=== PATIENT | male | born 1950 | race Caucasian/White ===

== ENCOUNTER 2017-07-28 22:26 | Inpatient (IN) | payer MEDICARE, OTHER ==
[2017-07-28 23:36] LABS: ADD MAN DIFF? NO
[2017-07-28 23:43] LABS: WHITE BLOOD COUNT 25.8 10^3/ul (4.8-10.8)
[2017-07-28 23:43] LABS: ABNORMAL IP MESSAGE 1; BASOPHIL # 0.1 10^3/ul (0.0-0.1); BASOPHILS % 0.2 % (0.0-2.0); HEMATOCRIT 50.3 % (42.0-52.0); HEMOGLOBIN 16.6 g/dl (14.0-18.0); LYMPHOCYTES # 1.3 10^3/ul (0.8-2.9); LYMPHOCYTES % 4.8 % (15.0-51.0); MEAN CORPUSCULAR HEMOGLOBIN 28.9 pg (29.0-33.0); MEAN CORPUSCULAR VOLUME 87.6 fl (82.0-101.0); MEAN PLATELET VOLUME 14.1 fl (7.4-10.4); MONOCYTE # 0.6 10^3/ul (0.3-0.9); MONOCYTES % 2.3 % (0.0-11.0); NEUTROPHIL # 23.8 10^3/ul (1.6-7.5); NEUTROPHILS % 92.2 % (39.0-77.0); PLATELET COUNT 137 10^3/UL (140-415); POSITIVE DIFF @See below; RED BLOOD COUNT 5.74 10^6/ul (4.70-6.10); RED CELL DISTRIBUTION WIDTH 14.6 % (11.5-14.5)
[2017-07-28 23:58] LABS: INR 1.13; PARTIAL THROMBOPLASTIN TIME 31.9 Sec (25.0-35.0); PROTIME 14.7 Sec (11.9-14.9); PT RATIO 1.1
[2017-07-29 00:01] LABS: ALANINE AMINOTRANSFERASE 73 IU/L (13-69); ALBUMIN 3.8 g/dl (3.3-4.9); ALBUMIN/GLOBULIN RATIO 1.05; ALKALINE PHOSPHATASE 120 IU/L (42-121); ANION GAP 18 (8-16); ASPARTATE AMINO TRANSFERASE 32 IU/L (15-46); BILIRUBIN,INDIRECT 0.9 mg/dl (0-1.1); BILIRUBIN,TOTAL 0.9 mg/dl (0.2-1.3); BLOOD UREA NITROGEN 29 mg/dl (7-20); CALCIUM 8.5 mg/dl (8.4-10.2); CARBON DIOXIDE 23 mmol/L (21-31); CHLORIDE 105 mmol/L (97-110); CREATININE 1.01 mg/dl (0.61-1.24); GLUCOSE 251 mg/dl (70-220); POTASSIUM 4.5 mmol/L (3.5-5.1); SODIUM 141 mmol/L (135-144); TOTAL PROTEIN 7.4 g/dl (6.1-8.1)
[2017-07-29 00:09] LABS: LACTIC ACID 2.8 mmol/L (0.5-2.0)
[2017-07-29 00:13] LABS: TROPONIN-I < 0.012 ng/ml (0.00-0.12)
[2017-07-29] MEDS: ONDANSETRON 4 MG INJ IV (00:30)
[2017-07-29] MEDS: morphine 4 MG/ML VIAL IV (00:30)
[2017-07-29] MEDS: SOD CHLORIDE 0.9% 500 ML IV ×2 (00:30→06:22)
[2017-07-29] MEDS: SODIUM CHLORIDE 0.9% 1L BAG IV* (00:36)
[2017-07-29 00:38] LABS: LIPASE 4233 U/L (23-300)
[2017-07-29] MEDS: CEFEPIME 2GM/50 ML (PMX) 50 ML IVPB (01:00)
[2017-07-29] MEDS: VANCOMYCIN 1 GM (PMX) 250 ML IVPB (01:49)
[2017-07-29 08:15] LABS: LACTIC ACID 1.8 mmol/L (0.5-2.0)
[2017-07-29 14:02] LABS: ADD UMIC YES; UR ASCORBIC ACID 40 mg/dL (NEGATIVE); UR BACTERIA FEW /HPF (NONE SEEN); UR BILIRUBIN (Dip) NEGATIVE (NEGATIVE); UR BLOOD (Dip) NEGATIVE (NEGATIVE); UR BUDDING YEAST FEW /HPF (NONE SEEN); UR CLARITY CLOUDY (CLEAR); UR COLOR AMBER (YELLOW); UR GLUCOSE (Dip) 1+ mg/dL (NEGATIVE); UR KETONES (Dip) TRACE mg/dL (NEGATIVE); UR LEUKOCYTE ESTERASE (Dip) 3+ Leu/ul (NEGATIVE); UR NITRITE (Dip) NEGATIVE (NEGATIVE); UR RBC 19 /HPF (0-5); UR SPECIFIC GRAVITY (Dip) 1.026 (1.003-1.030); UR TOTAL PROTEIN (Dip) 2+ mg/dl (NEGATIVE); UR UROBILINOGEN (Dip) NEGATIVE (NEGATIVE); UR WBC 43 /HPF (0-5)
[2017-07-29] MEDS ORDERED: VANCOMYCIN IV PER PHARMACY XX (14:30)
[2017-07-29] MEDS ORDERED: GLUCOSE GEL 15 GRAM TUBE BUCCAL (14:30)
[2017-07-29] MEDS ORDERED: GLUCOSE GEL 15 GRAM TUBE PO ×2 (14:30)
[2017-07-29] MEDS ORDERED: GLUCAGON 1 MG INJ IM (14:30)
[2017-07-29] MEDS ORDERED: ONDANSETRON 4 MG INJ IV (15:00)
[2017-07-29] MEDS: CEFEPIME 1GM/50 ML (PMX) 50 ML IVPB (15:37)
[2017-07-29] MEDS: SOD CHLORIDE 0.9% 1,000 ML IV ×2 (15:37→23:43)
[2017-07-29] MEDS: PANTOPRAZOLE 40 MG INJ IV (15:37)
[2017-07-29] MEDS: LEVETIRACETAM 500 MG (PMX) 100 ML IVPB ×2 (16:11→22:39)
[2017-07-29] MEDS: VANCOMYCIN 750 MG in DEXTROSE 5% 150 ML IVPB (16:40)
[2017-07-29] MEDS ORDERED: INSULIN ASPART [NOVOLOG] 3 ML PEN SC ×2 (17:00→18:00)
[2017-07-29] MEDS: Insulin NOVOLOG SS MILD Algorithm (NPO/TPN/ENTERAL FEEDS) SC ×2 (17:37→21:00)
[2017-07-29] MEDS: HYDROCORTISONE 2.5% 20 GM CR TOP (23:00)
[2017-07-29 23:20] LABS: AADO2 Arterial 353.2 mmHg (7.0-24.0); Allen Test ACCEPTAB; Arterial Base Excess -2.1 mmol/L (-3.0-3); Arterial Blood Gas Oxygen Sat 99.5 mmHG (95.0-98.0); Arterial COHb 0.1 % (0.0-3.0); Arterial Fraction of Oxyhgb 98.8 % (93.0-99.0); Arterial HCO3 22.6 mmol/L (22.0-26.0); Arterial MetHb 0.6 % (0.0-1.5); Arterial Total Hemglobin 13.7 g/dl (12.0-18.0); Arterial pCO2 38.6 mmhg (35-45); MODE TRACH COLLAR; Site Right Radial
[2017-07-29] MEDS: PIPER-TAZO 3.375 GM IV (PMX) 100 ML IVPB (23:44)
[2017-07-30] MEDS: ALBUTEROL/IPRATROPIUM (NEB) 3 ML AMP HHN ×5 (00:07→19:27)
[2017-07-30] MEDS: Insulin NOVOLOG SS MILD Algorithm (NPO/TPN/ENTERAL FEEDS) SC ×6 (01:07→20:42)
[2017-07-30] MEDS ORDERED: ACCU-CHEK XX (02:00)
[2017-07-30] MEDS: VANCOMYCIN 750 MG in DEXTROSE 5% 150 ML IVPB ×2 (05:28→16:35)
[2017-07-30] MEDS: PIPER-TAZO 3.375 GM IV (PMX) 100 ML IVPB ×3 (06:25→21:41)
[2017-07-30 06:27] LABS: ADD MAN DIFF? NO
[2017-07-30 06:36] LABS: ABNORMAL IP MESSAGE 1; BASOPHILS % 0.3 % (0.0-2.0); EOSINOPHILS # 0.1 10^3/ul (0.0-0.5); EOSINOPHILS % 0.5 % (0.0-7.0); HEMATOCRIT 37.8 % (42.0-52.0); HEMOGLOBIN 12.3 g/dl (14.0-18.0); LYMPHOCYTES # 0.7 10^3/ul (0.8-2.9); LYMPHOCYTES % 5.6 % (15.0-51.0); MEAN CORPUSCULAR HEMOGLOBIN 29.1 pg (29.0-33.0); MEAN CORPUSCULAR HGB CONC 32.5 g/dl (32.0-37.0); MEAN CORPUSCULAR VOLUME 89.4 fl (82.0-101.0); MONOCYTE # 0.4 10^3/ul (0.3-0.9); MONOCYTES % 3.4 % (0.0-11.0); NEUTROPHILS % 89.9 % (39.0-77.0); PLATELET COUNT 112 10^3/UL (140-415); POSITIVE DIFF @See below; RED BLOOD COUNT 4.23 10^6/ul (4.70-6.10); RED CELL DISTRIBUTION WIDTH 14.8 % (11.5-14.5)
[2017-07-30 06:36] LABS: WHITE BLOOD COUNT 12.2 10^3/ul (4.8-10.8)
[2017-07-30] MEDS: SOD CHLORIDE 0.9% 1,000 ML IV ×3 (06:38→14:38)
[2017-07-30 06:46] LABS: HEMOGLOBIN A1C 5.8 % (0-5.9)
[2017-07-30 06:54] LABS: CHOL/HDL RATIO 5.3 RATIO; HDL CHOLESTEROL 13 mg/dl (30-78); LDL CHOLESTEROL,CALCULATED 35 mg/dl; TRIGLYCERIDES 103 mg/dl (0-149)
[2017-07-30 06:54] LABS: CHOLESTEROL 69 mg/dl (100-200)
[2017-07-30 06:59] LABS: LIPASE 548 U/L (23-300)
[2017-07-30 07:35] LABS: ANION GAP 14 (8-16); BLOOD UREA NITROGEN 27 mg/dl (7-20); CALCIUM 7.3 mg/dl (8.4-10.2); CARBON DIOXIDE 21 mmol/L (21-31); CHLORIDE 116 mmol/L (97-110); CREATININE 0.96 mg/dl (0.61-1.24); GLUCOSE 163 mg/dl (70-220); POTASSIUM 3.8 mmol/L (3.5-5.1); SODIUM 147 mmol/L (135-144)
[2017-07-30] MEDS: PANTOPRAZOLE 40 MG INJ IV (09:24)
[2017-07-30] MEDS: LEVETIRACETAM 500 MG (PMX) 100 ML IVPB ×2 (09:25→20:36)
[2017-07-30 16:03] LABS: VANCOMYCIN,TROUGH 12.6 ug/ml (10.0-20.0)
[2017-07-30] MEDS: D5W-0.45 NACL + KCL 20 MEQ 1,000 ML IV (17:25)
[2017-07-30] MEDS: HYDROCORTISONE 2.5% 28.35 GM CR TOP (20:37)
[2017-07-31] MEDS: ALBUTEROL/IPRATROPIUM (NEB) 3 ML AMP HHN ×4 (01:42→19:20)
[2017-07-31] MEDS: Insulin NOVOLOG SS MILD Algorithm (NPO/TPN/ENTERAL FEEDS) SC ×6 (01:43→20:16)
[2017-07-31] MEDS: VANCOMYCIN 750 MG in DEXTROSE 5% 150 ML IVPB ×2 (04:14→16:49)
[2017-07-31] MEDS: D5W-0.45 NACL + KCL 20 MEQ 1,000 ML IV ×3 (04:14→23:30)
[2017-07-31] MEDS: PIPER-TAZO 3.375 GM IV (PMX) 100 ML IVPB ×3 (05:24→21:47)
[2017-07-31 06:08] LABS: ADD MAN DIFF? NO
[2017-07-31 06:42] LABS: ANION GAP 15 (8-16); BLOOD UREA NITROGEN 22 mg/dl (7-20); CALCIUM 7.9 mg/dl (8.4-10.2); CARBON DIOXIDE 23 mmol/L (21-31); CHLORIDE 116 mmol/L (97-110); CREATININE 0.97 mg/dl (0.61-1.24); GLUCOSE 182 mg/dl (70-220); POTASSIUM 3.6 mmol/L (3.5-5.1); SODIUM 150 mmol/L (135-144)
[2017-07-31 08:25] LABS: BASOPHILS % 0.3 % (0.0-2.0); EOSINOPHILS # 0.1 10^3/ul (0.0-0.5); EOSINOPHILS % 1.2 % (0.0-7.0); HEMATOCRIT 41.2 % (42.0-52.0); HEMOGLOBIN 13.4 g/dl (14.0-18.0); LYMPHOCYTES % 10.7 % (15.0-51.0); MEAN CORPUSCULAR HEMOGLOBIN 29.5 pg (29.0-33.0); MEAN CORPUSCULAR HGB CONC 32.5 g/dl (32.0-37.0); MEAN CORPUSCULAR VOLUME 90.5 fl (82.0-101.0); MEAN PLATELET VOLUME 12.8 fl (7.4-10.4); MONOCYTE # 0.4 10^3/ul (0.3-0.9); MONOCYTES % 4.6 % (0.0-11.0); NEUTROPHIL # 7.9 10^3/ul (1.6-7.5); NEUTROPHILS % 82.9 % (39.0-77.0); PLATELET COUNT 106 10^3/UL (140-415); RED BLOOD COUNT 4.55 10^6/ul (4.70-6.10); RED CELL DISTRIBUTION WIDTH 14.6 % (11.5-14.5)
[2017-07-31 08:25] LABS: WHITE BLOOD COUNT 9.5 10^3/ul (4.8-10.8)
[2017-07-31] MEDS: LEVETIRACETAM 500 MG (PMX) 100 ML IVPB ×2 (09:34→20:01)
[2017-07-31] MEDS: HYDROCORTISONE 2.5% 28.35 GM CR TOP ×2 (09:36→20:01)
[2017-07-31] MEDS: BALSAM PERU/CASTOR OIL 60 GM TUBE TOP ×2 (10:14→20:02)
[2017-07-31 10:46] LABS: PROTEIN, TOTAL 4.7 g/dL (6.1-8.1)
[2017-07-31 15:36] LABS: ALBUMIN 2.2 g/dL (3.8-4.8); ALPHA-1-GLOBULINS 0.5 g/dL (0.2-0.3); ALPHA-2-GLOBULINS 0.6 g/dL (0.5-0.9); BETA 2 GLOBULINS 0.3 g/dL (0.2-0.5); BETA GLOBULINS 0.3 g/dL (0.4-0.6); GAMMA GLOBULINS 0.8 g/dL (0.8-1.7); PROLACTIN 5.9 ng/mL (2.0-18.0)
[2017-08-01] MEDS: ALBUTEROL/IPRATROPIUM (NEB) 3 ML AMP HHN ×4 (01:01→19:54)
[2017-08-01] MEDS: Insulin NOVOLOG SS MILD Algorithm (NPO/TPN/ENTERAL FEEDS) SC ×6 (01:40→22:31)
[2017-08-01] MEDS: PIPER-TAZO 3.375 GM IV (PMX) 100 ML IVPB ×3 (05:01→22:42)
[2017-08-01] MEDS: HYDROCORTISONE 2.5% 28.35 GM CR TOP ×2 (09:14→21:00)
[2017-08-01] MEDS: LEVETIRACETAM 500 MG (PMX) 100 ML IVPB ×2 (09:14→22:54)
[2017-08-01] MEDS: BALSAM PERU/CASTOR OIL 60 GM TUBE TOP ×2 (09:15→22:55)
[2017-08-01] MEDS: D5W-0.45 NACL + KCL 20 MEQ 1,000 ML IV ×2 (10:20→18:46)
[2017-08-01] MEDS ORDERED: MAGNESIUM SULFATE 4 GM/100 ML 100 ML IVPB (11:30)
[2017-08-01 20:37] LABS: POTASSIUM 3.8 mmol/L (3.5-5.1)
[2017-08-02] MEDS: ALBUTEROL/IPRATROPIUM (NEB) 3 ML AMP HHN ×4 (01:16→20:18)
[2017-08-02] MEDS: Insulin NOVOLOG SS MILD Algorithm (NPO/TPN/ENTERAL FEEDS) SC ×6 (01:51→21:55)
[2017-08-02] MEDS: PIPER-TAZO 3.375 GM IV (PMX) 100 ML IVPB ×2 (05:13→14:50)
[2017-08-02] MEDS: D5W-0.45 NACL + KCL 20 MEQ 1,000 ML IV ×2 (05:15→15:15)
[2017-08-02 06:11] LABS: ADD MAN DIFF? NO
[2017-08-02 06:18] LABS: BASOPHILS % 0.3 % (0.0-2.0); EOSINOPHILS # 0.1 10^3/ul (0.0-0.5); EOSINOPHILS % 0.6 % (0.0-7.0); HEMATOCRIT 36.6 % (42.0-52.0); HEMOGLOBIN 12.1 g/dl (14.0-18.0); LYMPHOCYTES # 0.7 10^3/ul (0.8-2.9); LYMPHOCYTES % 4.4 % (15.0-51.0); MEAN CORPUSCULAR HEMOGLOBIN 29.3 pg (29.0-33.0); MEAN CORPUSCULAR HGB CONC 33.1 g/dl (32.0-37.0); MEAN CORPUSCULAR VOLUME 88.6 fl (82.0-101.0); MEAN PLATELET VOLUME 12.6 fl (7.4-10.4); MONOCYTE # 0.5 10^3/ul (0.3-0.9); MONOCYTES % 3.4 % (0.0-11.0); NEUTROPHIL # 14.1 10^3/ul (1.6-7.5); NEUTROPHILS % 90.8 % (39.0-77.0); PLATELET COUNT 171 10^3/UL (140-415); RED BLOOD COUNT 4.13 10^6/ul (4.70-6.10); RED CELL DISTRIBUTION WIDTH 14.6 % (11.5-14.5)
[2017-08-02 06:18] LABS: WHITE BLOOD COUNT 15.6 10^3/ul (4.8-10.8)
[2017-08-02 07:02] LABS: ANION GAP 13 (8-16); BLOOD UREA NITROGEN 12 mg/dl (7-20); CARBON DIOXIDE 21 mmol/L (21-31); CHLORIDE 118 mmol/L (97-110); CREATININE 0.87 mg/dl (0.61-1.24); GLUCOSE 232 mg/dl (70-220); POTASSIUM 3.6 mmol/L (3.5-5.1); SODIUM 148 mmol/L (135-144)
[2017-08-02] MEDS: BALSAM PERU/CASTOR OIL 60 GM TUBE TOP ×2 (08:20→21:50)
[2017-08-02] MEDS: HYDROCORTISONE 2.5% 28.35 GM CR TOP (08:20)
[2017-08-02] MEDS: LEVETIRACETAM 500 MG (PMX) 100 ML IVPB ×2 (09:15→21:47)
[2017-08-02] MEDS: POTASSIUM CHLORIDE 20 MEQ POWDER FOR ORAL SOLN JT (15:02)
[2017-08-02] MEDS ORDERED: PROPOFOL 20 ML (17:57)
[2017-08-02] MEDS ORDERED: ROCURONIUM 50 MG INJ (17:57)
[2017-08-02] MEDS ORDERED: FENTAnyl 50 MCG/ML VIAL (17:57)
[2017-08-02] MEDS ORDERED: MIDAZOLAM 1 MG/ML 2 ML INJ (17:57)
[2017-08-02] MEDS ORDERED: FENTAnyl 50 MCG/ML VIAL IV ×2 (18:00)
[2017-08-02] MEDS ORDERED: METOCLOPRAMIDE 10 MG INJ IV (18:00)
[2017-08-02] MEDS ORDERED: DIPHENHYDRAMINE 50 MG INJ IV (18:00)
[2017-08-02] MEDS ORDERED: EPHEDrine SULFATE 50 MG/5 ML SYG IV (18:00)
[2017-08-02] MEDS ORDERED: hydrALAzine 20 MG INJ IV (18:00)
[2017-08-02] MEDS ORDERED: HYDROmorphONE (0.2 MG/ML) 10ML SYG IV ×2 (18:00)
[2017-08-02] MEDS ORDERED: MEPERIDINE 25 MG INJ IV (18:00)
[2017-08-02] MEDS ORDERED: ONDANSETRON 4 MG INJ IV (18:00)
[2017-08-02] MEDS ORDERED: LABETALOL HCL 20MG INJ IV (18:00)
[2017-08-02] MEDS ORDERED: PHENYLephrine (100 MCG/ML) 5ML SYG (18:15)
[2017-08-02] MEDS ORDERED: SUGAMMADEX SODIUM 200 MG/2 ML VIAL IV (19:18)
[2017-08-02] MEDS ORDERED: METOCLOPRAMIDE 10 MG INJ (19:18)
[2017-08-02] MEDS ORDERED: DEXAMETHASONE 4 MG/ML 1 ML INJ (19:18)
[2017-08-02] MEDS ORDERED: ONDANSETRON 4 MG INJ (19:18)
[2017-08-02] MEDS: COLISTIMETHATE 150 MG in SOD CHLORIDE 0.9% 100 ML IVPB (21:49)
[2017-08-02] MEDS: metroNIDAZOLE 500 MG/NS (PMX) 100 ML IVPB (21:49)
[2017-08-02] MEDS: INSULIN DETEMIR [LEVEMIR] 3ML CART SC (21:54)
[2017-08-03] MEDS: D5W-0.45 NACL + KCL 20 MEQ 1,000 ML IV ×4 (01:30→20:31)
[2017-08-03] MEDS: ALBUTEROL/IPRATROPIUM (NEB) 3 ML AMP HHN ×4 (01:52→20:04)
[2017-08-03] MEDS: Insulin NOVOLOG SS MILD Algorithm (NPO/TPN/ENTERAL FEEDS) SC ×6 (02:00→20:29)
[2017-08-03] MEDS: metroNIDAZOLE 500 MG/NS (PMX) 100 ML IVPB ×3 (05:22→21:39)
[2017-08-03 07:28] LABS: ADD MAN DIFF? NO
[2017-08-03 07:50] LABS: MAGNESIUM 1.7 mg/dl (1.7-2.5)
[2017-08-03 07:53] LABS: ALANINE AMINOTRANSFERASE 32 IU/L (13-69); ALBUMIN 1.9 g/dl (3.3-4.9); ALBUMIN/GLOBULIN RATIO 0.86; ALKALINE PHOSPHATASE 69 IU/L (42-121); ANION GAP 11 (8-16); ASPARTATE AMINO TRANSFERASE 15 IU/L (15-46); BILIRUBIN,INDIRECT 0.1 mg/dl (0-1.1); BILIRUBIN,TOTAL 0.1 mg/dl (0.2-1.3); BLOOD UREA NITROGEN 17 mg/dl (7-20); CALCIUM 7.8 mg/dl (8.4-10.2); CARBON DIOXIDE 22 mmol/L (21-31); CHLORIDE 118 mmol/L (97-110); CREATININE 0.85 mg/dl (0.61-1.24); GLUCOSE 213 mg/dl (70-220); POTASSIUM 3.9 mmol/L (3.5-5.1); SODIUM 147 mmol/L (135-144); TOTAL PROTEIN 4.1 g/dl (6.1-8.1)
[2017-08-03] MEDS: LEVETIRACETAM 500 MG (PMX) 100 ML IVPB ×2 (08:28→20:23)
[2017-08-03] MEDS: HYDROCORTISONE 2.5% 28.35 GM CR TOP ×2 (08:28→21:39)
[2017-08-03] MEDS: INSULIN DETEMIR [LEVEMIR] 3ML CART SC ×2 (08:30→20:30)
[2017-08-03] MEDS: BALSAM PERU/CASTOR OIL 60 GM TUBE TOP ×2 (08:31→20:24)
[2017-08-03 08:43] LABS: ABNORMAL IP MESSAGE 1; BASOPHILS % 0.2 % (0.0-2.0); HEMOGLOBIN 10.7 g/dl (14.0-18.0); LYMPHOCYTES # 0.5 10^3/ul (0.8-2.9); MEAN CORPUSCULAR HEMOGLOBIN 29.6 pg (29.0-33.0); MEAN CORPUSCULAR HGB CONC 32.4 g/dl (32.0-37.0); MEAN CORPUSCULAR VOLUME 91.2 fl (82.0-101.0); MEAN PLATELET VOLUME 12.4 fl (7.4-10.4); MONOCYTE # 0.4 10^3/ul (0.3-0.9); MONOCYTES % 2.8 % (0.0-11.0); NEUTROPHIL # 12.2 10^3/ul (1.6-7.5); NEUTROPHILS % 92.3 % (39.0-77.0); PLATELET COUNT 163 10^3/UL (140-415); POSITIVE DIFF @See below; RED BLOOD COUNT 3.62 10^6/ul (4.70-6.10); RED CELL DISTRIBUTION WIDTH 14.7 % (11.5-14.5)
[2017-08-03 08:43] LABS: WHITE BLOOD COUNT 13.2 10^3/ul (4.8-10.8)
[2017-08-03] MEDS: COLISTIMETHATE 150 MG in SOD CHLORIDE 0.9% 100 ML IVPB ×2 (10:06→20:20)
[2017-08-03] MEDS: MAGNESIUM SULFATE 3 GM in DEXTROSE 5% 100 ML IVPB (18:06)
[2017-08-04] MEDS ORDERED: VANCOMYCIN IV PER PHARMACY XX
[2017-08-04] MEDS: ACETAMINOPHEN 650 MG SUPP PR (00:42)
[2017-08-04] MEDS: VANCOMYCIN 1 GM 250 ML IVPB (00:43)
[2017-08-04] MEDS: SOD CHLORIDE 0.9% 1,000 ML IV (00:43)
[2017-08-04] MEDS: METOPROLOL 5 MG INJ IV (00:55)
[2017-08-04] MEDS: Insulin NOVOLOG SS MILD Algorithm (NPO/TPN/ENTERAL FEEDS) SC ×6 (01:00→20:22)
[2017-08-04] MEDS: ALBUTEROL/IPRATROPIUM (NEB) 3 ML AMP HHN ×4 (01:30→19:42)
[2017-08-04 01:39] LABS: LACTIC ACID 2.8 mmol/L (0.5-2.0)
[2017-08-04] MEDS: D5W-0.45 NACL + KCL 20 MEQ 1,000 ML IV ×3 (06:04→17:53)
[2017-08-04] MEDS: metroNIDAZOLE 500 MG/NS (PMX) 100 ML IVPB ×3 (06:12→21:56)
[2017-08-04] MEDS: DEXTROSE 50% 50 ML SYRINGE IV (06:12)
[2017-08-04] MEDS: INSULIN DETEMIR [LEVEMIR] 3ML CART SC ×2 (08:00→20:00)
[2017-08-04 08:13] LABS: WHITE BLOOD COUNT 26.1 10^3/ul (4.8-10.8)
[2017-08-04 08:13] LABS: ABNORMAL IP MESSAGE 1; HEMATOCRIT 35.2 % (42.0-52.0); HEMOGLOBIN 11.5 g/dl (14.0-18.0); MEAN CORPUSCULAR HEMOGLOBIN 29.3 pg (29.0-33.0); MEAN CORPUSCULAR HGB CONC 32.7 g/dl (32.0-37.0); MEAN CORPUSCULAR VOLUME 89.8 fl (82.0-101.0); MEAN PLATELET VOLUME 11.7 fl (7.4-10.4); PLATELET COUNT 230 10^3/UL (140-415); POSITIVE DIFF @See below; RED BLOOD COUNT 3.92 10^6/ul (4.70-6.10)
[2017-08-04 08:28] LABS: ADD MAN DIFF? YES
[2017-08-04] MEDS: LEVETIRACETAM 500 MG (PMX) 100 ML IVPB ×2 (08:40→20:22)
[2017-08-04 08:44] LABS: LACTIC ACID 1.7 mmol/L (0.5-2.0)
[2017-08-04 08:45] LABS: ANION GAP 9 (8-16); BLOOD UREA NITROGEN 17 mg/dl (7-20); CALCIUM 7.8 mg/dl (8.4-10.2); CARBON DIOXIDE 20 mmol/L (21-31); CHLORIDE 122 mmol/L (97-110); GLUCOSE 92 mg/dl (70-220); POTASSIUM 3.3 mmol/L (3.5-5.1); SODIUM 148 mmol/L (135-144)
[2017-08-04] MEDS: BALSAM PERU/CASTOR OIL 60 GM TUBE TOP ×2 (08:45→20:27)
[2017-08-04] MEDS: HYDROCORTISONE 2.5% 28.35 GM CR TOP ×2 (08:45→20:27)
[2017-08-04] MEDS: COLISTIMETHATE 150 MG in SOD CHLORIDE 0.9% 100 ML IVPB ×2 (08:46→22:36)
[2017-08-04 09:20] LABS: ANISOCYTOSIS 1+ (0-0); BAND NEUTROPHILS % (M) 23 % (0-4); GIANT THROMBO% (M) 1 % (0-0); LYMPHOCYTES #M 0.2 10^3/ul (0.8-2.9); LYMPHOCYTES % (M) 1 % (15-51); MONOCYTE #M 0.2 10^3/ul (0.3-0.9); MONOCYTES % (M) 1 % (0-11); PLATELET ESTIMATE NORMAL; POLYCHROMASIA 1+ (0-0); SEG NEUT #M 21.1 10^3/ul (1.6-7.5); SEGMENTED NEUTROPHILS (M) % 75 % (39-77)
[2017-08-04] MEDS: CEFEPIME 1GM/50 ML (PMX) 50 ML IVPB ×2 (10:10→20:27)
[2017-08-04] MEDS: POTASSIUM CHLORIDE 20 MEQ POWDER FOR ORAL SOLN GTB (11:30)
[2017-08-04] MEDS: VANCOMYCIN 750 MG in DEXTROSE 5% 150 ML IVPB (11:48)
[2017-08-04] MEDS: MAGNESIUM SULFATE 2 GM/50 ML 50 ML IVPB (13:31)
[2017-08-04] MEDS: POTASSIUM CHLORIDE 100 ML IVPB ×2 (16:30→17:53)
[2017-08-04] MEDS ORDERED: ACETAMINOPHEN 650 MG SUPP PR (23:51)
[2017-08-05] MEDS: VANCOMYCIN 750 MG in DEXTROSE 5% 150 ML IVPB (00:24)
[2017-08-05] MEDS: Insulin NOVOLOG SS MILD Algorithm (NPO/TPN/ENTERAL FEEDS) SC ×6 (00:36→21:00)
[2017-08-05] MEDS: ALBUTEROL/IPRATROPIUM (NEB) 3 ML AMP HHN ×4 (01:46→19:45)
[2017-08-05] MEDS: D5W-0.45 NACL + KCL 20 MEQ 1,000 ML IV ×4 (03:30→22:01)
[2017-08-05] MEDS: metroNIDAZOLE 500 MG/NS (PMX) 100 ML IVPB ×3 (05:37→22:02)
[2017-08-05] MEDS: CEFEPIME 1GM/50 ML (PMX) 50 ML IVPB ×2 (08:19→22:02)
[2017-08-05] MEDS: LEVETIRACETAM 500 MG (PMX) 100 ML IVPB ×2 (08:19→22:02)
[2017-08-05] MEDS: INSULIN DETEMIR [LEVEMIR] 3ML CART SC ×2 (08:19→22:14)
[2017-08-05] MEDS: BALSAM PERU/CASTOR OIL 60 GM TUBE TOP ×2 (08:20→22:02)
[2017-08-05] MEDS: HYDROCORTISONE 2.5% 28.35 GM CR TOP ×2 (08:20→22:01)
[2017-08-05 09:08] LABS: ABNORMAL IP MESSAGE 1; HEMATOCRIT 32.7 % (42.0-52.0); HEMOGLOBIN 10.5 g/dl (14.0-18.0); MEAN CORPUSCULAR HEMOGLOBIN 29.4 pg (29.0-33.0); MEAN CORPUSCULAR HGB CONC 32.1 g/dl (32.0-37.0); MEAN CORPUSCULAR VOLUME 91.6 fl (82.0-101.0); MEAN PLATELET VOLUME 11.6 fl (7.4-10.4); PLATELET COUNT 178 10^3/UL (140-415); POSITIVE DIFF @See below; RED BLOOD COUNT 3.57 10^6/ul (4.70-6.10); RED CELL DISTRIBUTION WIDTH 14.9 % (11.5-14.5)
[2017-08-05 09:16] LABS: ADD MAN DIFF? YES
[2017-08-05 09:30] LABS: ALANINE AMINOTRANSFERASE 26 IU/L (13-69); ALBUMIN 1.9 g/dl (3.3-4.9); ALBUMIN/GLOBULIN RATIO 0.67; ALKALINE PHOSPHATASE 70 IU/L (42-121); AMYLASE 75 U/L (11-123); ANION GAP 11 (8-16); ASPARTATE AMINO TRANSFERASE 19 IU/L (15-46); BILIRUBIN,INDIRECT 0.2 mg/dl (0-1.1); BILIRUBIN,TOTAL 0.2 mg/dl (0.2-1.3); BLOOD UREA NITROGEN 18 mg/dl (7-20); CALCIUM 8.1 mg/dl (8.4-10.2); CARBON DIOXIDE 21 mmol/L (21-31); CHLORIDE 121 mmol/L (97-110); CREATININE 1.28 mg/dl (0.61-1.24); GLUCOSE 115 mg/dl (70-220); LIPASE 96 U/L (23-300); POTASSIUM 4.1 mmol/L (3.5-5.1); SODIUM 149 mmol/L (135-144); TOTAL PROTEIN 4.7 g/dl (6.1-8.1)
[2017-08-05 10:03] LABS: ANISOCYTOSIS 1+ (0-0); BAND NEUTROPHILS #M 5.7 10^3/ul (0.0-0.6); BAND NEUTROPHILS % (M) 34 % (0-4); LYMPHOCYTES #M 0.3 10^3/ul (0.8-2.9); LYMPHOCYTES % (M) 2 % (15-51); METAMYELOCYTES #M 0.1 10^3/ul (0.0-0.0); METAMYELOCYTES %M 1 % (0-0); MICROCYTOSIS 1+ (0-0); MONOCYTE #M 0.1 10^3/ul (0.3-0.9); MONOCYTES % (M) 1 % (0-11); PLATELET ESTIMATE NORMAL; POIKILOCYTOSIS 2+ (0-0); SEG NEUT #M 11.5 10^3/ul (1.6-7.5); SEGMENTED NEUTROPHILS (M) % 62 % (39-77); SMUDGE%M 5 % (0-0)
[2017-08-05] MEDS: COLISTIMETHATE 150 MG in SOD CHLORIDE 0.9% 100 ML IVPB (10:37)
[2017-08-05 12:27] LABS: VANCOMYCIN,TROUGH 17.6 ug/ml (10.0-20.0)
[2017-08-05] MEDS: DEXTROSE 50% 50 ML SYRINGE IV ×2 (22:20→23:09)
[2017-08-05] MEDS: VANCOMYCIN 1.25 GM in SOD CHLORIDE 0.9% 250 ML IVPB (23:40)
[2017-08-06] MEDS: Insulin NOVOLOG SS MILD Algorithm (NPO/TPN/ENTERAL FEEDS) SC ×6 (00:14→21:00)
[2017-08-06] MEDS: ACETAMINOPHEN 650 MG SUPP PR ×2 (00:14→16:01)
[2017-08-06] MEDS: ALBUTEROL/IPRATROPIUM (NEB) 3 ML AMP HHN ×4 (01:31→20:01)
[2017-08-06] MEDS: metroNIDAZOLE 500 MG/NS (PMX) 100 ML IVPB ×3 (05:18→22:21)
[2017-08-06 06:10] LABS: ABNORMAL IP MESSAGE 1; HEMATOCRIT 30.6 % (42.0-52.0); HEMOGLOBIN 9.9 g/dl (14.0-18.0); MEAN CORPUSCULAR HEMOGLOBIN 29.6 pg (29.0-33.0); MEAN CORPUSCULAR HGB CONC 32.4 g/dl (32.0-37.0); MEAN CORPUSCULAR VOLUME 91.3 fl (82.0-101.0); MEAN PLATELET VOLUME 12.1 fl (7.4-10.4); PLATELET COUNT 143 10^3/UL (140-415); POSITIVE DIFF @See below; RED BLOOD COUNT 3.35 10^6/ul (4.70-6.10); RED CELL DISTRIBUTION WIDTH 14.9 % (11.5-14.5)
[2017-08-06 06:10] LABS: WHITE BLOOD COUNT 13.4 10^3/ul (4.8-10.8)
[2017-08-06 06:15] LABS: ADD MAN DIFF? YES
[2017-08-06 06:33] LABS: MAGNESIUM 1.8 mg/dl (1.7-2.5)
[2017-08-06 06:35] LABS: ANION GAP 12 (8-16); BLOOD UREA NITROGEN 24 mg/dl (7-20); CALCIUM 8.2 mg/dl (8.4-10.2); CARBON DIOXIDE 20 mmol/L (21-31); CHLORIDE 119 mmol/L (97-110); CREATININE 1.45 mg/dl (0.61-1.24); GLUCOSE 107 mg/dl (70-220); POTASSIUM 4.1 mmol/L (3.5-5.1); SODIUM 147 mmol/L (135-144)
[2017-08-06] MEDS: LEVETIRACETAM 500 MG (PMX) 100 ML IVPB ×2 (09:26→22:20)
[2017-08-06] MEDS: CEFEPIME 1GM/50 ML (PMX) 50 ML IVPB ×2 (09:26→22:21)
[2017-08-06] MEDS: INSULIN DETEMIR [LEVEMIR] 3ML CART SC (09:26)
[2017-08-06 09:28] LABS: ANISOCYTOSIS 1+ (0-0); BAND NEUTROPHILS #M 3.3 10^3/ul (0.0-0.6); BAND NEUTROPHILS % (M) 25 % (0-4); EOSINOPHILS % (M) 1 % (0-7); GIANT THROMBO% (M) 1 % (0-0); LYMPHOCYTES #M 0.2 10^3/ul (0.8-2.9); LYMPHOCYTES % (M) 2 % (15-51); MICROCYTOSIS 1+ (0-0); MONOCYTE #M 0.1 10^3/ul (0.3-0.9); MONOCYTES % (M) 1 % (0-11); PLATELET ESTIMATE NORMAL; POIKILOCYTOSIS 3+ (0-0); POLYCHROMASIA 3+ (0-0); SEGMENTED NEUTROPHILS (M) % 71 % (39-77); SMUDGE%M 6 % (0-0)
[2017-08-06] MEDS: HYDROCORTISONE 2.5% 28.35 GM CR TOP ×2 (09:29→22:21)
[2017-08-06] MEDS: BALSAM PERU/CASTOR OIL 60 GM TUBE TOP ×2 (09:29→22:21)
[2017-08-06] MEDS: D5W-0.45 NACL + KCL 20 MEQ 1,000 ML IV ×3 (09:30→16:30)
[2017-08-06] MEDS: COLISTIMETHATE 75 MG in SOD CHLORIDE 0.9% 100 ML IVPB ×2 (10:46→22:27)
[2017-08-06] MEDS: DEXTROSE 50% 50 ML SYRINGE IV ×2 (12:43→13:04)
[2017-08-06] MEDS: DEXTROSE 5% WATER 500 ML BAG IV (14:00)
[2017-08-06] MEDS ORDERED: SOD CHLORIDE 0.9% 1,000 ML IV (16:00)
[2017-08-06] MEDS: METOPROLOL 5 MG INJ IV (16:00)
[2017-08-06] MEDS: MEROPENEM 1 GM/50ML(PMX) 50 ML IVPB (18:41)
[2017-08-06] MEDS: VANCOMYCIN 1.25 GM in SOD CHLORIDE 0.9% 250 ML IVPB (22:20)
[2017-08-07] MEDS: Insulin NOVOLOG SS MILD Algorithm (NPO/TPN/ENTERAL FEEDS) SC ×6 (00:35→21:11)
[2017-08-07] MEDS: ALBUTEROL/IPRATROPIUM (NEB) 3 ML AMP HHN ×4 (01:29→20:21)
[2017-08-07] MEDS: D5W-0.45 NACL + KCL 20 MEQ 1,000 ML IV ×2 (01:45→12:30)
[2017-08-07] MEDS: metroNIDAZOLE 500 MG/NS (PMX) 100 ML IVPB ×3 (05:58→20:56)
[2017-08-07 06:59] LABS: ABNORMAL IP MESSAGE 1; HEMATOCRIT 40.2 % (42.0-52.0); HEMOGLOBIN 12.6 g/dl (14.0-18.0); MEAN CORPUSCULAR HGB CONC 31.3 g/dl (32.0-37.0); MEAN CORPUSCULAR VOLUME 92.6 fl (82.0-101.0); MEAN PLATELET VOLUME 12.5 fl (7.4-10.4); POSITIVE DIFF @See below; RED BLOOD COUNT 4.34 10^6/ul (4.70-6.10); RED CELL DISTRIBUTION WIDTH 15.3 % (11.5-14.5)
[2017-08-07 06:59] LABS: WHITE BLOOD COUNT 16.3 10^3/ul (4.8-10.8)
[2017-08-07 07:04] LABS: ADD MAN DIFF? YES; PLATELET COUNT 61 10^3/UL (140-415)
[2017-08-07 07:25] LABS: CREATINE KINASE 41 IU/L (23-200)
[2017-08-07 07:27] LABS: PHOSPHORUS 4.3 mg/dl (2.5-4.9)
[2017-08-07 07:27] LABS: MAGNESIUM 1.6 mg/dl (1.7-2.5); URIC ACID 4.8 mg/dl (3.1-7.9)
[2017-08-07 07:53] LABS: ANION GAP 15 (8-16); BLOOD UREA NITROGEN 30 mg/dl (7-20); CALCIUM 8.9 mg/dl (8.4-10.2); CARBON DIOXIDE 17 mmol/L (21-31); CHLORIDE 120 mmol/L (97-110); CREATININE 1.81 mg/dl (0.61-1.24); GLUCOSE 129 mg/dl (70-220); POTASSIUM 4.7 mmol/L (3.5-5.1); SODIUM 147 mmol/L (135-144)
[2017-08-07 08:07] LABS: ALBUMIN 2.1 g/dl (3.3-4.9)
[2017-08-07 09:15] LABS: BAND NEUTROPHILS #M 3.2 10^3/ul (0.0-0.6); BAND NEUTROPHILS % (M) 20 % (0-4); EOSINOPHILS % (M) 1 % (0-7); GIANT THROMBO% (M) 1 % (0-0); LYMPHOCYTES #M 0.3 10^3/ul (0.8-2.9); LYMPHOCYTES % (M) 2 % (15-51); MONOCYTE #M 0.1 10^3/ul (0.3-0.9); MONOCYTES % (M) 1 % (0-11); PLATELET ESTIMATE SIG DECREASED; POLYCHROMASIA 1+ (0-0); SEG NEUT #M 12.9 10^3/ul (1.6-7.5); SEGMENTED NEUTROPHILS (M) % 76 % (39-77); SMUDGE%M 11 % (0-0)
[2017-08-07] MEDS: CEFEPIME 1GM/50 ML (PMX) 50 ML IVPB (09:46)
[2017-08-07] MEDS: BALSAM PERU/CASTOR OIL 60 GM TUBE TOP ×2 (09:47→21:06)
[2017-08-07] MEDS: MEROPENEM 1 GM/50ML(PMX) 50 ML IVPB ×2 (09:47→20:56)
[2017-08-07] MEDS: COLISTIMETHATE 75 MG in SOD CHLORIDE 0.9% 100 ML IVPB ×2 (09:47→20:56)
[2017-08-07] MEDS: LEVETIRACETAM 500 MG (PMX) 100 ML IVPB ×2 (09:47→20:55)
[2017-08-07] MEDS: HYDROCORTISONE 2.5% 28.35 GM CR TOP ×2 (09:47→21:06)
[2017-08-07] MEDS: MAGNESIUM SULFATE 1 GM/D5W 100 ML IVPB (14:56)
[2017-08-07 15:23] LABS: LIPASE 160 U/L (23-300)
[2017-08-07 15:23] LABS: AMYLASE 207 U/L (11-123)
[2017-08-07] MEDS: D5W + KCL 20 MEQ 1,000 ML IV (21:13)
[2017-08-07 23:10] LABS: VANCOMYCIN,TROUGH 22.3 ug/ml (10.0-20.0)
[2017-08-08] MEDS: Insulin NOVOLOG SS MILD Algorithm (NPO/TPN/ENTERAL FEEDS) SC ×6 (01:09→20:57)
[2017-08-08] MEDS: METOPROLOL 5 MG INJ IV ×2 (01:10→09:50)
[2017-08-08] MEDS: VANCOMYCIN 1 GM 250 ML IVPB (01:29)
[2017-08-08] MEDS: ALBUTEROL/IPRATROPIUM (NEB) 3 ML AMP HHN ×4 (01:30→20:17)
[2017-08-08] MEDS: metroNIDAZOLE 500 MG/NS (PMX) 100 ML IVPB ×2 (04:59→13:04)
[2017-08-08 06:20] LABS: ABNORMAL IP MESSAGE 1; HEMATOCRIT 32.1 % (42.0-52.0); HEMOGLOBIN 10.3 g/dl (14.0-18.0); MEAN CORPUSCULAR HEMOGLOBIN 28.9 pg (29.0-33.0); MEAN CORPUSCULAR HGB CONC 32.1 g/dl (32.0-37.0); MEAN CORPUSCULAR VOLUME 90.2 fl (82.0-101.0); MEAN PLATELET VOLUME 12.5 fl (7.4-10.4); POSITIVE DIFF @See below; RED BLOOD COUNT 3.56 10^6/ul (4.70-6.10); RED CELL DISTRIBUTION WIDTH 14.9 % (11.5-14.5)
[2017-08-08 06:20] LABS: WHITE BLOOD COUNT 14.4 10^3/ul (4.8-10.8)
[2017-08-08 06:48] LABS: MAGNESIUM 1.9 mg/dl (1.7-2.5)
[2017-08-08 06:48] LABS: ADD MAN DIFF? YES; PLATELET COUNT 148 10^3/UL (140-415)
[2017-08-08 07:34] LABS: CREATININE 1.93 mg/dl (0.61-1.24)
[2017-08-08 07:34] LABS: BLOOD UREA NITROGEN 38 mg/dl (7-20)
[2017-08-08 08:10] LABS: BAND NEUTROPHILS #M 2.1 10^3/ul (0.0-0.6); BAND NEUTROPHILS % (M) 15 % (0-4); GIANT THROMBO% (M) 1 % (0-0); LYMPHOCYTES #M 0.2 10^3/ul (0.8-2.9); LYMPHOCYTES % (M) 2 % (15-51); MONOCYTE #M 1.1 10^3/ul (0.3-0.9); MONOCYTES % (M) 8 % (0-11); PLATELET ESTIMATE NORMAL; SEG NEUT #M 11.1 10^3/ul (1.6-7.5); SEGMENTED NEUTROPHILS (M) % 75 % (39-77); SMUDGE%M 9 % (0-0)
[2017-08-08] MEDS: D5W + KCL 20 MEQ 1,000 ML IV ×2 (08:20→20:53)
[2017-08-08] MEDS: LEVETIRACETAM 500 MG (PMX) 100 ML IVPB ×2 (09:35→20:53)
[2017-08-08] MEDS: BALSAM PERU/CASTOR OIL 60 GM TUBE TOP ×2 (09:36→20:54)
[2017-08-08] MEDS: COLISTIMETHATE 75 MG in SOD CHLORIDE 0.9% 100 ML IVPB (09:36)
[2017-08-08] MEDS: MEROPENEM 1 GM/50ML(PMX) 50 ML IVPB ×2 (09:36→20:53)
[2017-08-08] MEDS: HYDROCORTISONE 2.5% 28.35 GM CR TOP ×2 (09:37→20:54)
[2017-08-08 11:55] LABS: SODIUM,URINE RANDOM 25 mmol/L (30-90)
[2017-08-08] MEDS: FUROSEMIDE 20 MG INJ IV (13:04)
[2017-08-08 14:16] LABS: PROCALCITONIN 0.19 ng/mL (<0.10)
[2017-08-08 17:07] LABS: PROTEIN/CREAT RATIO 0.37 RATIO
[2017-08-08] MEDS ORDERED: BARIUM SULF 2% 450 ML BTL (BERRY SMOOTHIE) PO (19:00)
[2017-08-09] MEDS: ALBUTEROL/IPRATROPIUM (NEB) 3 ML AMP HHN ×4 (01:37→20:07)
[2017-08-09] MEDS: Insulin NOVOLOG SS MILD Algorithm (NPO/TPN/ENTERAL FEEDS) SC ×6 (01:43→21:17)
[2017-08-09 06:59] LABS: HEMATOCRIT 29.8 % (42.0-52.0); HEMOGLOBIN 9.7 g/dl (14.0-18.0); MEAN CORPUSCULAR HGB CONC 32.6 g/dl (32.0-37.0); PLATELET COUNT 182 10^3/UL (140-415); POSITIVE DIFF @See below; RED BLOOD COUNT 3.35 10^6/ul (4.70-6.10)
[2017-08-09 06:59] LABS: WHITE BLOOD COUNT 14.8 10^3/ul (4.8-10.8)
[2017-08-09 07:02] LABS: ADD MAN DIFF? YES
[2017-08-09 07:25] LABS: ANION GAP 13 (8-16); BLOOD UREA NITROGEN 43 mg/dl (7-20); CALCIUM 8.6 mg/dl (8.4-10.2); CARBON DIOXIDE 21 mmol/L (21-31); CHLORIDE 113 mmol/L (97-110); CREATININE 1.97 mg/dl (0.61-1.24); GLUCOSE 212 mg/dl (70-220); MAGNESIUM 1.7 mg/dl (1.7-2.5); PHOSPHORUS 4.3 mg/dl (2.5-4.9); POTASSIUM 4.2 mmol/L (3.5-5.1); SODIUM 143 mmol/L (135-144)
[2017-08-09] MEDS ORDERED: BARIUM SULF 2% 450 ML BTL (BERRY SMOOTHIE) PO (08:00)
[2017-08-09] MEDS ORDERED: VANCOMYCIN 750 MG in DEXTROSE 5% 150 ML IVPB (08:00)
[2017-08-09] MEDS: HYDROCORTISONE 2.5% 28.35 GM CR TOP ×2 (08:38→21:12)
[2017-08-09] MEDS: BALSAM PERU/CASTOR OIL 60 GM TUBE TOP ×2 (08:38→21:13)
[2017-08-09] MEDS: LEVETIRACETAM 500 MG (PMX) 100 ML IVPB ×2 (08:38→21:07)
[2017-08-09] MEDS: D5W + KCL 20 MEQ 1,000 ML IV (08:39)
[2017-08-09] MEDS: MEROPENEM 1 GM/50ML(PMX) 50 ML IVPB ×2 (10:14→21:29)
[2017-08-09] MEDS: LIDOCAINE 1% (MPF) 5 ML VIAL SC (13:00)
[2017-08-09 13:52] LABS: ANISOCYTOSIS 1+ (0-0); BAND NEUTROPHILS #M 2.2 10^3/ul (0.0-0.6); BAND NEUTROPHILS % (M) 15 % (0-4); EOSINOPHILS % (M) 1 % (0-7); GIANT THROMBO% (M) 1 % (0-0); LYMPHOCYTES #M 0.5 10^3/ul (0.8-2.9); LYMPHOCYTES % (M) 4 % (15-51); MICROCYTOSIS 1+ (0-0); MONOCYTE #M 0.1 10^3/ul (0.3-0.9); MONOCYTES % (M) 1 % (0-11); PLATELET ESTIMATE NORMAL; POIKILOCYTOSIS 1+ (0-0); POLYCHROMASIA 3+ (0-0); SEGMENTED NEUTROPHILS (M) % 79 % (39-77); SMUDGE%M 4 % (0-0)
[2017-08-09] MEDS: MAGNESIUM SULFATE 1 GM/D5W 100 ML IVPB (16:36)
[2017-08-09] MEDS: ACCU-CHEK XX ×2 (17:09→21:13)
[2017-08-09 17:13] LABS: ALANINE AMINOTRANSFERASE 20 IU/L (13-69); ALBUMIN 1.9 g/dl (3.3-4.9); ALBUMIN/GLOBULIN RATIO 0.67; ALKALINE PHOSPHATASE 71 IU/L (42-121); ANION GAP 13 (8-16); ASPARTATE AMINO TRANSFERASE 27 IU/L (15-46); BILIRUBIN,INDIRECT 0.4 mg/dl (0-1.1); BILIRUBIN,TOTAL 0.4 mg/dl (0.2-1.3); BLOOD UREA NITROGEN 46 mg/dl (7-20); CALCIUM 8.7 mg/dl (8.4-10.2); CARBON DIOXIDE 20 mmol/L (21-31); CHLORIDE 113 mmol/L (97-110); CREATININE 2.02 mg/dl (0.61-1.24); GLUCOSE 171 mg/dl (70-220); MAGNESIUM 1.8 mg/dl (1.7-2.5); PHOSPHORUS 4.1 mg/dl (2.5-4.9); POTASSIUM 4.4 mmol/L (3.5-5.1); SODIUM 142 mmol/L (135-144); TOTAL PROTEIN 4.7 g/dl (6.1-8.1); TRIGLYCERIDES 134 mg/dl (0-149)
[2017-08-09 18:03] LABS: PREALBUMIN 3.2 mg/dl (17.6-36.0)
[2017-08-09] MEDS: INSULIN GLARGINE [LANtus] 3 ML PEN SC (21:17)
[2017-08-10] MEDS: D5W + KCL 20 MEQ 1,000 ML IV ×2 (00:27→13:50)
[2017-08-10] MEDS: Insulin NOVOLOG SS MILD Algorithm (NPO/TPN/ENTERAL FEEDS) SC ×6 (01:49→21:24)
[2017-08-10] MEDS: ACCU-CHEK XX ×7 (01:50→21:24)
[2017-08-10] MEDS: ALBUTEROL/IPRATROPIUM (NEB) 3 ML AMP HHN ×4 (02:14→20:00)
[2017-08-10 09:03] LABS: ADD MAN DIFF? NO
[2017-08-10 09:07] LABS: WHITE BLOOD COUNT 14.5 10^3/ul (4.8-10.8)
[2017-08-10 09:07] LABS: BASOPHILS % 0.1 % (0.0-2.0); EOSINOPHILS # 0.1 10^3/ul (0.0-0.5); EOSINOPHILS % 0.6 % (0.0-7.0); HEMOGLOBIN 8.9 g/dl (14.0-18.0); LYMPHOCYTES # 0.9 10^3/ul (0.8-2.9); LYMPHOCYTES % 6.4 % (15.0-51.0); MEAN CORPUSCULAR HEMOGLOBIN 28.7 pg (29.0-33.0); MEAN CORPUSCULAR VOLUME 87.1 fl (82.0-101.0); MEAN PLATELET VOLUME 12.6 fl (7.4-10.4); MONOCYTE # 0.4 10^3/ul (0.3-0.9); MONOCYTES % 2.4 % (0.0-11.0); NEUTROPHILS % 89.6 % (39.0-77.0); PLATELET COUNT 158 10^3/UL (140-415); RED CELL DISTRIBUTION WIDTH 15.1 % (11.5-14.5)
[2017-08-10] MEDS: MEROPENEM 1 GM/50ML(PMX) 50 ML IVPB ×3 (09:09→22:50)
[2017-08-10] MEDS: LEVETIRACETAM 500 MG (PMX) 100 ML IVPB ×2 (09:09→21:10)
[2017-08-10] MEDS: BALSAM PERU/CASTOR OIL 60 GM TUBE TOP ×2 (09:10→21:27)
[2017-08-10 09:30] LABS: ANION GAP 11 (8-16); BLOOD UREA NITROGEN 47 mg/dl (7-20); CALCIUM 8.4 mg/dl (8.4-10.2); CARBON DIOXIDE 25 mmol/L (21-31); CHLORIDE 111 mmol/L (97-110); CREATININE 1.94 mg/dl (0.61-1.24); GLUCOSE 191 mg/dl (70-220); SODIUM 143 mmol/L (135-144)
[2017-08-10] MEDS: HYDROCORTISONE 2.5% 28.35 GM CR TOP ×2 (09:30→21:27)
[2017-08-10 09:38] LABS: PHOSPHORUS 4.1 mg/dl (2.5-4.9)
[2017-08-10 09:38] LABS: MAGNESIUM 1.8 mg/dl (1.7-2.5)
[2017-08-10] MEDS: METOPROLOL 5 MG INJ IV (15:28)
[2017-08-10] MEDS: TPN 1,000 ML IV (17:04)
[2017-08-10] MEDS: FAT EMULSION 20% 250 ML IV (17:18)
[2017-08-10] MEDS: INSULIN GLARGINE [LANtus] 3 ML PEN SC (21:24)
[2017-08-11] MEDS: ACCU-CHEK XX ×7 (01:26→21:03)
[2017-08-11] MEDS: ALBUTEROL/IPRATROPIUM (NEB) 3 ML AMP HHN ×4 (01:47→20:09)
[2017-08-11] MEDS: Insulin NOVOLOG SS MILD Algorithm (NPO/TPN/ENTERAL FEEDS) SC ×5 (01:57→17:18)
[2017-08-11] MEDS: D5W + KCL 20 MEQ 1,000 ML IV (01:59)
[2017-08-11] MEDS: TPN 1,000 ML IV ×2 (05:53→17:26)
[2017-08-11 06:07] LABS: ADD MAN DIFF? NO
[2017-08-11 06:16] LABS: BASOPHILS % 0.1 % (0.0-2.0); EOSINOPHILS % 0.2 % (0.0-7.0); HEMATOCRIT 28.7 % (42.0-52.0); HEMOGLOBIN 9.4 g/dl (14.0-18.0); LYMPHOCYTES # 0.9 10^3/ul (0.8-2.9); LYMPHOCYTES % 4.5 % (15.0-51.0); MEAN CORPUSCULAR HEMOGLOBIN 29.1 pg (29.0-33.0); MEAN CORPUSCULAR HGB CONC 32.8 g/dl (32.0-37.0); MEAN CORPUSCULAR VOLUME 88.9 fl (82.0-101.0); MEAN PLATELET VOLUME 12.1 fl (7.4-10.4); MONOCYTE # 0.5 10^3/ul (0.3-0.9); MONOCYTES % 2.4 % (0.0-11.0); NEUTROPHIL # 18.4 10^3/ul (1.6-7.5); NEUTROPHILS % 91.9 % (39.0-77.0); PLATELET COUNT 199 10^3/UL (140-415); RED BLOOD COUNT 3.23 10^6/ul (4.70-6.10); RED CELL DISTRIBUTION WIDTH 15.1 % (11.5-14.5)
[2017-08-11 06:16] LABS: WHITE BLOOD COUNT 20.1 10^3/ul (4.8-10.8)
[2017-08-11 06:30] LABS: ANION GAP 12 (8-16); BLOOD UREA NITROGEN 53 mg/dl (7-20); CALCIUM 8.2 mg/dl (8.4-10.2); CARBON DIOXIDE 25 mmol/L (21-31); CHLORIDE 109 mmol/L (97-110); CREATININE 1.79 mg/dl (0.61-1.24); GLUCOSE 269 mg/dl (70-220); SODIUM 142 mmol/L (135-144); TRIGLYCERIDES 248 mg/dl (0-149)
[2017-08-11 06:43] LABS: MAGNESIUM 1.7 mg/dl (1.7-2.5)
[2017-08-11] MEDS: LEVETIRACETAM 500 MG (PMX) 100 ML IVPB ×2 (08:52→20:56)
[2017-08-11] MEDS: MEROPENEM 1 GM/50ML(PMX) 50 ML IVPB ×2 (08:53→20:56)
[2017-08-11] MEDS: BALSAM PERU/CASTOR OIL 60 GM TUBE TOP ×2 (08:53→20:56)
[2017-08-11] MEDS: HYDROCORTISONE 2.5% 28.35 GM CR TOP ×2 (08:53→20:57)
[2017-08-11 10:20] LABS: INR 1.43; PROTIME 17.7 Sec (11.9-14.9); PT RATIO 1.4
[2017-08-11] MEDS: LIDOCAINE 1% (MDV) 10 ML INJ (11:13)
[2017-08-11 12:42] LABS: FLUID GLUCOSE 209 mg/dl; FLUID TYPE ABDOMINAL FLUID
[2017-08-11 12:43] LABS: FLUID LD 1625 U/L; FLUID TOTAL PROTEIN < 2.0 g/dl
[2017-08-11 12:50] LABS: FLD MN% 9.7 %; FLD PMN% 90.3 %; FLD RBC 1000 /uL; FLD WBC 420 /cmm
[2017-08-11 12:53] LABS: FLD CLARITY CLEAR; FLD COLOR YELLOW
[2017-08-11 12:53] LABS: FLD TYPE PARACENTHESIS
[2017-08-11] MEDS: FAT EMULSION 20% 250 ML IV (16:47)
[2017-08-11] MEDS: INSULIN ASPART [NOVOLOG] 3 ML PEN SC (21:02)
[2017-08-11] MEDS: INSULIN GLARGINE [LANtus] 3 ML PEN SC (21:02)
[2017-08-12] MEDS: ACCU-CHEK XX ×7 (01:06→21:25)
[2017-08-12] MEDS: METOPROLOL 5 MG INJ IV ×2 (01:10→23:31)
[2017-08-12] MEDS: INSULIN ASPART [NOVOLOG] 3 ML PEN SC ×6 (01:19→22:00)
[2017-08-12] MEDS: ALBUTEROL/IPRATROPIUM (NEB) 3 ML AMP HHN ×4 (01:35→19:55)
[2017-08-12] MEDS: TPN 1,000 ML IV ×3 (05:30→21:30)
[2017-08-12] MEDS: BALSAM PERU/CASTOR OIL 60 GM TUBE TOP ×2 (09:02→21:18)
[2017-08-12] MEDS: HYDROCORTISONE 2.5% 28.35 GM CR TOP ×2 (09:02→21:19)
[2017-08-12] MEDS: LEVETIRACETAM 500 MG (PMX) 100 ML IVPB ×2 (09:03→21:15)
[2017-08-12] MEDS: MEROPENEM 1 GM/50ML(PMX) 50 ML IVPB ×2 (09:03→21:15)
[2017-08-12 09:08] LABS: ADD MAN DIFF? NO
[2017-08-12 09:12] LABS: WHITE BLOOD COUNT 29.5 10^3/ul (4.8-10.8)
[2017-08-12 09:12] LABS: ABNORMAL IP MESSAGE 1; BASOPHILS % 0.1 % (0.0-2.0); HEMATOCRIT 32.1 % (42.0-52.0); HEMOGLOBIN 10.6 g/dl (14.0-18.0); LYMPHOCYTES % 3.3 % (15.0-51.0); MEAN CORPUSCULAR HEMOGLOBIN 29.2 pg (29.0-33.0); MEAN CORPUSCULAR VOLUME 88.4 fl (82.0-101.0); MEAN PLATELET VOLUME 12.4 fl (7.4-10.4); MONOCYTE # 0.8 10^3/ul (0.3-0.9); MONOCYTES % 2.6 % (0.0-11.0); NEUTROPHIL # 27.4 10^3/ul (1.6-7.5); NEUTROPHILS % 92.8 % (39.0-77.0); PLATELET COUNT 166 10^3/UL (140-415); POSITIVE DIFF @See below; RED BLOOD COUNT 3.63 10^6/ul (4.70-6.10)
[2017-08-12 09:35] LABS: ANION GAP 11 (8-16); BLOOD UREA NITROGEN 64 mg/dl (7-20); CALCIUM 7.8 mg/dl (8.4-10.2); CARBON DIOXIDE 24 mmol/L (21-31); CHLORIDE 107 mmol/L (97-110); CREATININE 1.77 mg/dl (0.61-1.24); GLUCOSE 258 mg/dl (70-220); POTASSIUM 4.3 mmol/L (3.5-5.1); SODIUM 138 mmol/L (135-144)
[2017-08-12] MEDS: TIGECYCLINE 100 MG in DEXTROSE 5% 100 ML IVPB (17:58)
[2017-08-12] MEDS: FAT EMULSION 20% 250 ML IV (18:38)
[2017-08-12 19:37] LABS: ADD UMIC YES; UR ASCORBIC ACID NEGATIVE (NEGATIVE); UR BACTERIA MODERATE /HPF (NONE SEEN); UR BILIRUBIN (Dip) NEGATIVE (NEGATIVE); UR BLOOD (Dip) 2+ mg/dL (NEGATIVE); UR BUDDING YEAST MANY /HPF (NONE SEEN); UR CLARITY TURBID (CLEAR); UR COLOR AMBER (YELLOW); UR GLUCOSE (Dip) 1+ mg/dL (NEGATIVE); UR GRANULAR CAST FEW /HPF (NONE SEEN); UR KETONES (Dip) NEGATIVE (NEGATIVE); UR LEUKOCYTE ESTERASE (Dip) 2+ Leu/ul (NEGATIVE); UR MUCUS FEW /HPF (NONE SEEN); UR NITRITE (Dip) NEGATIVE (NEGATIVE); UR NONSQUAMOUS EPITHELIAL CELL 1 /HPF (NONE SEEN); UR RBC 157 /HPF (0-5); UR SPECIFIC GRAVITY (Dip) 1.019 (1.003-1.030); UR TOTAL PROTEIN (Dip) 2+ mg/dl (NEGATIVE); UR UROBILINOGEN (Dip) 1+ mg/dL (NEGATIVE); UR WBC > 182 /HPF (0-5)
[2017-08-12] MEDS ORDERED: INSULIN GLARGINE [LANtus] 3 ML PEN SC (20:00)
[2017-08-12] MEDS: INSULIN GLARGINE [LANtus] 3 ML PEN SC (21:38)
[2017-08-13] MEDS: COLISTIMETHATE (25 MG/ML INHAL SYG) NEB ×3 (00:27→20:28)
[2017-08-13] MEDS: ALBUTEROL/IPRATROPIUM (NEB) 3 ML AMP HHN ×4 (01:22→20:28)
[2017-08-13] MEDS: INSULIN ASPART [NOVOLOG] 3 ML PEN SC ×6 (01:39→21:39)
[2017-08-13] MEDS: ACCU-CHEK XX ×7 (01:40→21:39)
[2017-08-13 07:22] LABS: ABNORMAL IP MESSAGE 1; HEMATOCRIT 32.1 % (42.0-52.0); HEMOGLOBIN 10.4 g/dl (14.0-18.0); MEAN CORPUSCULAR HEMOGLOBIN 28.7 pg (29.0-33.0); MEAN CORPUSCULAR HGB CONC 32.4 g/dl (32.0-37.0); MEAN CORPUSCULAR VOLUME 88.4 fl (82.0-101.0); MEAN PLATELET VOLUME 13.2 fl (7.4-10.4); PLATELET COUNT 120 10^3/UL (140-415); POSITIVE DIFF @See below; RED BLOOD COUNT 3.63 10^6/ul (4.70-6.10)
[2017-08-13 07:22] LABS: WHITE BLOOD COUNT 26.8 10^3/ul (4.8-10.8)
[2017-08-13 07:44] LABS: ANION GAP 11 (8-16); BLOOD UREA NITROGEN 83 mg/dl (7-20); CARBON DIOXIDE 26 mmol/L (21-31); CHLORIDE 106 mmol/L (97-110); CREATININE 1.83 mg/dl (0.61-1.24); GLUCOSE 155 mg/dl (70-220); POTASSIUM 4.6 mmol/L (3.5-5.1); SODIUM 138 mmol/L (135-144)
[2017-08-13 07:46] LABS: ADD MAN DIFF? YES
[2017-08-13 07:48] LABS: HDL CHOLESTEROL 6 mg/dl (30-78); TRIGLYCERIDES 163 mg/dl (0-149)
[2017-08-13 07:50] LABS: CHOLESTEROL < 50 mg/dl (100-200)
[2017-08-13 09:20] LABS: ANISOCYTOSIS 1+ (0-0); BAND NEUTROPHILS #M 3.7 10^3/ul (0.0-0.6); BAND NEUTROPHILS % (M) 14 % (0-4); BURR CELLS 1+ (0-0); MONOCYTE #M 0.5 10^3/ul (0.3-0.9); MONOCYTES % (M) 2 % (0-11); PLATELET ESTIMATE DECREASED; POIKILOCYTOSIS 1+ (0-0); POLYCHROMASIA 2+ (0-0); SEG NEUT #M 23.5 10^3/ul (1.6-7.5); SEGMENTED NEUTROPHILS (M) % 84 % (39-77); SMUDGE%M 20 % (0-0)
[2017-08-13] MEDS: LEVETIRACETAM 500 MG (PMX) 100 ML IVPB ×2 (09:23→21:24)
[2017-08-13] MEDS: MEROPENEM 1 GM/50ML(PMX) 50 ML IVPB ×2 (09:24→21:26)
[2017-08-13] MEDS: BALSAM PERU/CASTOR OIL 60 GM TUBE TOP ×2 (09:24→21:32)
[2017-08-13] MEDS: HYDROCORTISONE 2.5% 28.35 GM CR TOP ×2 (09:26→21:32)
[2017-08-13] MEDS: METOPROLOL 5 MG INJ IV (10:44)
[2017-08-13] MEDS: TIGECYCLINE 50 MG in DEXTROSE 5% 100 ML IVPB ×2 (12:32→21:40)
[2017-08-13] MEDS: SOD CHLORIDE 0.9% 1,000 ML IV (12:33)
[2017-08-13 12:37] LABS: PREALBUMIN 3.9 mg/dl (17.6-36.0)
[2017-08-13] MEDS: FAT EMULSION 20% 250 ML IV (16:21)
[2017-08-13] MEDS: FLUCONAZOLE 200 MG/NS (PMX) 100 ML IVPB (16:21)
[2017-08-13] MEDS: ALBUMIN HUMAN 25% 100 ML IV (17:55)
[2017-08-13] MEDS: TPN 1,000 ML IV (19:00)
[2017-08-13] MEDS: INSULIN GLARGINE [LANtus] 3 ML PEN SC (21:37)
[2017-08-14] MEDS: ACCU-CHEK XX ×13 (01:18→23:58)
[2017-08-14] MEDS: INSULIN ASPART [NOVOLOG] 3 ML PEN SC ×5 (01:26→16:31)
[2017-08-14] MEDS: ALBUTEROL/IPRATROPIUM (NEB) 3 ML AMP HHN ×4 (01:35→19:20)
[2017-08-14] MEDS: SOD CHLORIDE 0.9% 1,000 ML IV ×3 (04:10→18:25)
[2017-08-14 06:32] LABS: ADD MAN DIFF? NO
[2017-08-14] MEDS: TPN 1,000 ML IV ×3 (06:35→19:42)
[2017-08-14 06:49] LABS: ANION GAP 14 (8-16); BLOOD UREA NITROGEN 100 mg/dl (7-20); CARBON DIOXIDE 23 mmol/L (21-31); CHLORIDE 100 mmol/L (97-110); CREATININE 1.77 mg/dl (0.61-1.24); GLUCOSE 297 mg/dl (70-220); MAGNESIUM 1.8 mg/dl (1.7-2.5); PHOSPHORUS 5.3 mg/dl (2.5-4.9); POTASSIUM 4.2 mmol/L (3.5-5.1); SODIUM 133 mmol/L (135-144)
[2017-08-14] MEDS: LEVETIRACETAM 500 MG (PMX) 100 ML IVPB ×2 (08:06→20:55)
[2017-08-14] MEDS: MEROPENEM 1 GM/50ML(PMX) 50 ML IVPB ×2 (08:43→20:55)
[2017-08-14] MEDS: HYDROCORTISONE 2.5% 28.35 GM CR TOP ×2 (08:46→23:29)
[2017-08-14] MEDS: BALSAM PERU/CASTOR OIL 60 GM TUBE TOP ×2 (08:46→23:29)
[2017-08-14] MEDS: COLISTIMETHATE (25 MG/ML INHAL SYG) NEB ×2 (09:04→19:21)
[2017-08-14] MEDS: TIGECYCLINE 50 MG in SOD CHLORIDE 0.9% 100 ML IVPB ×2 (09:10→20:56)
[2017-08-14 10:07] LABS: WHITE BLOOD COUNT 17.5 10^3/ul (4.8-10.8)
[2017-08-14 10:08] LABS: HEMOGLOBIN 8.2 g/dl (14.0-18.0); MEAN CORPUSCULAR HEMOGLOBIN 31.7 pg (29.0-33.0); MEAN CORPUSCULAR HGB CONC 35.7 g/dl (32.0-37.0); MEAN CORPUSCULAR VOLUME 88.8 fl (82.0-101.0); MEAN PLATELET VOLUME 13.1 fl (7.4-10.4); NEUTROPHILS % 92.3 % (39.0-77.0); PLATELET COUNT 119 10^3/UL (140-415); RED BLOOD COUNT 2.59 10^6/ul (4.70-6.10)
[2017-08-14 10:10] LABS: LYMPHOCYTES % 3.5 % (15.0-51.0); MONOCYTES % 3.4 % (0.0-11.0)
[2017-08-14 10:11] LABS: BASOPHILS % 0.1 % (0.0-2.0)
[2017-08-14 11:06] LABS: AADO2 Arterial 525.1 mmHg (7.0-24.0); AADO2 Arterial 603.4 mmHg (7.0-24.0); Allen Test ACCEPTAB; Arterial Base Excess -0.6 mmol/L (-3.0-3); Arterial Blood Gas Oxygen Sat 90.2 mmHG (95.0-98.0); Arterial Blood Gas Oxygen Sat 98.5 mmHG (95.0-98.0); Arterial COHb 0.2 % (0.0-3.0); Arterial COHb 0.3 % (0.0-3.0); Arterial Fraction of Oxyhgb 89.6 % (93.0-99.0); Arterial Fraction of Oxyhgb 97.9 % (93.0-99.0); Arterial HCO3 23.6 mmol/L (22.0-26.0); Arterial HCO3 24.5 mmol/L (22.0-26.0); Arterial MetHb 0.4 % (0.0-1.5); Arterial Total Hemglobin 8.8 g/dl (12.0-18.0); Arterial Total Hemglobin 9.3 g/dl (12.0-18.0); Arterial pCO2 44.3 mmhg (35-45); MODE TRACH COLLAR; MODE VENT - AC; Site Right Radial
[2017-08-14] MEDS: ALBUMIN HUMAN 25% 100 ML IV ×3 (11:30→20:51)
[2017-08-14] MEDS ORDERED: ALBUMIN HUMAN 25% 100 ML (12:08)
[2017-08-14] MEDS: PROPOFOL 100 ML IV (12:30)
[2017-08-14] MEDS: FUROSEMIDE 20 MG INJ IV (13:27)
[2017-08-14] MEDS: FLUCONAZOLE 200 MG/NS (PMX) 100 ML IVPB (13:48)
[2017-08-14] MEDS ORDERED: PHENYLephrine 20MG IN 250 ML 250 ML (15:33)
[2017-08-14] MEDS: FAT EMULSION 20% 250 ML IV (15:46)
[2017-08-14] MEDS: PHENYLephrine 40 MG in DEXTROSE 5% 496 ML IV (16:03)
[2017-08-14] MEDS ORDERED: Treatment of Hypoglycemia: XX (17:30)
[2017-08-14] MEDS ORDERED: DEXTROSE 50% 50 ML SYRINGE IV (17:30)
[2017-08-14] MEDS: Discontinue all previous diabetes medication and insulin orders. XX (18:30)
[2017-08-14] MEDS ORDERED: INSULIN GLARGINE [LANtus] 3 ML PEN SC (20:00)
[2017-08-14] MEDS: CASPOFUNGIN 70 MG in SOD CHLORIDE 0.9% 250 ML IVPB (21:00)
[2017-08-14] MEDS: INSULIN HUMAN REGULAR 100 UNIT in SOD CHLORIDE 0.9% 99 ML IV (21:07)
[2017-08-14 21:15] LABS: LACTIC ACID 2.1 mmol/L (0.5-2.0)
[2017-08-15] MEDS: ACCU-CHEK XX ×24 (00:30→23:30)
[2017-08-15] MEDS: PROPOFOL 100 ML IV ×2 (00:30→12:30)
[2017-08-15] MEDS: PHENYLephrine 40 MG in DEXTROSE 5% 496 ML IV ×3 (00:36→23:40)
[2017-08-15] MEDS: ALBUTEROL/IPRATROPIUM (NEB) 3 ML AMP HHN ×4 (01:13→19:08)
[2017-08-15] MEDS: SOD CHLORIDE 0.9% 1,000 ML IV ×2 (02:09→15:28)
[2017-08-15] MEDS: ALBUMIN HUMAN 25% 100 ML IV (03:19)
[2017-08-15 04:04] LABS: ADD UMIC YES; UR ASCORBIC ACID NEGATIVE (NEGATIVE); UR BACTERIA FEW /HPF (NONE SEEN); UR BILIRUBIN (Dip) NEGATIVE (NEGATIVE); UR BLOOD (Dip) 2+ mg/dL (NEGATIVE); UR BUDDING YEAST FEW /HPF (NONE SEEN); UR CLARITY SLIGHTLY CLOUDY (CLEAR); UR COLOR YELLOW (YELLOW); UR GLUCOSE (Dip) 1+ mg/dL (NEGATIVE); UR KETONES (Dip) NEGATIVE (NEGATIVE); UR LEUKOCYTE ESTERASE (Dip) 2+ Leu/ul (NEGATIVE); UR NITRITE (Dip) NEGATIVE (NEGATIVE); UR RBC 17 /HPF (0-5); UR SPECIFIC GRAVITY (Dip) 1.013 (1.003-1.030); UR TOTAL PROTEIN (Dip) 1+ mg/dl (NEGATIVE); UR UROBILINOGEN (Dip) NEGATIVE (NEGATIVE); UR WBC 10 /HPF (0-5)
[2017-08-15 05:12] LABS: WHITE BLOOD COUNT 27.1 10^3/ul (4.8-10.8)
[2017-08-15 05:12] LABS: ABNORMAL IP MESSAGE 1; HEMATOCRIT 22.4 % (42.0-52.0); HEMOGLOBIN 7.3 g/dl (14.0-18.0); MEAN CORPUSCULAR HEMOGLOBIN 28.1 pg (29.0-33.0); MEAN CORPUSCULAR HGB CONC 32.6 g/dl (32.0-37.0); MEAN CORPUSCULAR VOLUME 86.2 fl (82.0-101.0); MEAN PLATELET VOLUME 13.2 fl (7.4-10.4); PLATELET COUNT 134 10^3/UL (140-415); POSITIVE DIFF @See below; RED CELL DISTRIBUTION WIDTH 15.3 % (11.5-14.5)
[2017-08-15 05:14] LABS: AADO2 Arterial 437.5 mmHg (7.0-24.0); Allen Test ACCEPTAB; Arterial Base Excess -5.6 mmol/L (-3.0-3); Arterial Blood Gas Oxygen Sat 94.7 mmHG (95.0-98.0); Arterial COHb 0.3 % (0.0-3.0); Arterial Fraction of Oxyhgb 93.9 % (93.0-99.0); Arterial HCO3 20.4 mmol/L (22.0-26.0); Arterial MetHb 0.5 % (0.0-1.5); Arterial Total Hemglobin 9.7 g/dl (12.0-18.0); Arterial pCO2 42.2 mmhg (35-45); MODE VENT - AC; Site Right Radial
[2017-08-15 05:23] LABS: ADD MAN DIFF? YES
[2017-08-15] MEDS: TPN 1,000 ML IV ×2 (05:30→16:47)
[2017-08-15 05:34] LABS: ANION GAP 15 (8-16); BLOOD UREA NITROGEN 107 mg/dl (7-20); CALCIUM 8.1 mg/dl (8.4-10.2); CARBON DIOXIDE 23 mmol/L (21-31); CHLORIDE 101 mmol/L (97-110); CREATININE 1.88 mg/dl (0.61-1.24); GLUCOSE 155 mg/dl (70-220); MAGNESIUM 1.7 mg/dl (1.7-2.5); PHOSPHORUS 4.6 mg/dl (2.5-4.9); POTASSIUM 3.6 mmol/L (3.5-5.1); SODIUM 135 mmol/L (135-144)
[2017-08-15 05:39] LABS: LACTIC ACID 2.8 mmol/L (0.5-2.0)
[2017-08-15] MEDS: INSULIN HUMAN REGULAR 100 UNIT in SOD CHLORIDE 0.9% 99 ML IV (06:17)
[2017-08-15] MEDS: MEROPENEM 1 GM/50ML(PMX) 50 ML IVPB ×2 (09:21→20:47)
[2017-08-15] MEDS: TIGECYCLINE 50 MG in SOD CHLORIDE 0.9% 100 ML IVPB (09:21)
[2017-08-15] MEDS: BALSAM PERU/CASTOR OIL 60 GM TUBE TOP ×2 (09:29→20:53)
[2017-08-15 10:17] LABS: ANISOCYTOSIS 1+ (0-0); BAND NEUTROPHILS % (M) 4 % (0-4); GIANT THROMBO% (M) 1 % (0-0); LYMPHOCYTES #M 0.5 10^3/ul (0.8-2.9); LYMPHOCYTES % (M) 2 % (15-51); MONOCYTE #M 0.5 10^3/ul (0.3-0.9); MONOCYTES % (M) 2 % (0-11); PLATELET ESTIMATE DECREASED; POIKILOCYTOSIS 1+ (0-0); POLYCHROMASIA 1+ (0-0); SEG NEUT #M 25.2 10^3/ul (1.6-7.5); SEGMENTED NEUTROPHILS (M) % 92 % (39-77); SMUDGE%M 1 % (0-0)
[2017-08-15] MEDS: LEVETIRACETAM 500 MG (PMX) 100 ML IVPB ×2 (11:20→20:47)
[2017-08-15] MEDS: HYDROCORTISONE 2.5% 28.35 GM CR TOP (11:21)
[2017-08-15] MEDS: COLISTIMETHATE (25 MG/ML INHAL SYG) NEB ×2 (11:33→19:08)
[2017-08-15] MEDS: FAT EMULSION 20% 250 ML IV (16:46)
[2017-08-15] MEDS: EPOETIN 10000 UNITS/1 ML INJ (ESRD) SC (16:59)
[2017-08-15 17:12] LABS: IMMEDIATE SPIN CROSSMATCH 1 1
[2017-08-15 20:36] LABS: LACTIC ACID 2.2 mmol/L (0.5-2.0)
[2017-08-15 20:38] LABS: LIPASE 258 U/L (23-300)
[2017-08-15] MEDS: FUROSEMIDE 20 MG INJ IV (20:55)
[2017-08-15] MEDS: CASPOFUNGIN 50 MG in SOD CHLORIDE 0.9% 250 ML IVPB (21:05)
[2017-08-16] MEDS: PROPOFOL 100 ML IV ×2 (00:30→12:30)
[2017-08-16] MEDS: ACCU-CHEK XX ×24 (00:56→23:30)
[2017-08-16] MEDS: ALBUTEROL/IPRATROPIUM (NEB) 3 ML AMP HHN ×4 (01:05→19:24)
[2017-08-16] MEDS: TPN 1,000 ML IV ×3 (05:24→16:52)
[2017-08-16 05:28] LABS: AADO2 Arterial 310.4 mmHg (7.0-24.0); Allen Test ACCEPTAB; Arterial Blood Gas Oxygen Sat 93.2 mmHG (95.0-98.0); Arterial COHb 0.3 % (0.0-3.0); Arterial Fraction of Oxyhgb 92.6 % (93.0-99.0); Arterial HCO3 23.3 mmol/L (22.0-26.0); Arterial MetHb 0.3 % (0.0-1.5); Arterial Total Hemglobin 11.1 g/dl (12.0-18.0); Arterial pCO2 41.9 mmhg (35-45); MODE VENT - AC; Site Right Brachial
[2017-08-16 07:01] LABS: ANION GAP 16 (8-16); CALCIUM 7.9 mg/dl (8.4-10.2); CARBON DIOXIDE 21 mmol/L (21-31); CHLORIDE 100 mmol/L (97-110); CREATININE 2.14 mg/dl (0.61-1.24); GLUCOSE 125 mg/dl (70-220); MAGNESIUM 1.7 mg/dl (1.7-2.5); PHOSPHORUS 5.4 mg/dl (2.5-4.9); POTASSIUM 3.7 mmol/L (3.5-5.1); SODIUM 133 mmol/L (135-144)
[2017-08-16 07:06] LABS: LACTIC ACID 2.7 mmol/L (0.5-2.0)
[2017-08-16 07:09] LABS: PREALBUMIN 3.2 mg/dl (17.6-36.0)
[2017-08-16 07:29] LABS: BLOOD UREA NITROGEN 119 mg/dl (7-20)
[2017-08-16] MEDS: SOD CHLORIDE 0.9% 1,000 ML IV ×2 (07:55→20:25)
[2017-08-16 08:28] LABS: ADD MAN DIFF? NO
[2017-08-16 08:40] LABS: ABNORMAL IP MESSAGE 1; BASOPHILS % 0.1 % (0.0-2.0); HEMATOCRIT 27.8 % (42.0-52.0); LYMPHOCYTES # 0.8 10^3/ul (0.8-2.9); LYMPHOCYTES % 3.5 % (15.0-51.0); MEAN CORPUSCULAR HEMOGLOBIN 28.4 pg (29.0-33.0); MEAN CORPUSCULAR HGB CONC 32.4 g/dl (32.0-37.0); MEAN CORPUSCULAR VOLUME 87.7 fl (82.0-101.0); MEAN PLATELET VOLUME 13.5 fl (7.4-10.4); MONOCYTE # 0.9 10^3/ul (0.3-0.9); MONOCYTES % 3.8 % (0.0-11.0); NEUTROPHIL # 21.4 10^3/ul (1.6-7.5); NEUTROPHILS % 91.9 % (39.0-77.0); PLATELET COUNT 88 10^3/UL (140-415); POSITIVE DIFF @See below; RED BLOOD COUNT 3.17 10^6/ul (4.70-6.10)
[2017-08-16 08:40] LABS: WHITE BLOOD COUNT 23.3 10^3/ul (4.8-10.8)
[2017-08-16] MEDS: LEVETIRACETAM 500 MG (PMX) 100 ML IVPB ×2 (09:06→20:40)
[2017-08-16] MEDS: MEROPENEM 1 GM/50ML(PMX) 50 ML IVPB ×2 (09:10→20:40)
[2017-08-16] MEDS: BALSAM PERU/CASTOR OIL 60 GM TUBE TOP ×2 (09:13→20:41)
[2017-08-16] MEDS: COLISTIMETHATE (25 MG/ML INHAL SYG) NEB ×2 (09:17→19:24)
[2017-08-16] MEDS: PHENYLephrine 40 MG in DEXTROSE 5% 496 ML IV ×2 (12:42→20:34)
[2017-08-16] MEDS: INSULIN HUMAN REGULAR 100 UNIT in SOD CHLORIDE 0.9% 99 ML IV (14:07)
[2017-08-16 15:28] LABS: OCCULT BLOOD STOOL NEGATIVE (NEGATIVE)
[2017-08-16] MEDS ORDERED: HEPARIN 1000 UNITS/ML 10 ML INJ (15:30)
[2017-08-16] MEDS: FAT EMULSION 20% 250 ML IV ×2 (16:00→16:52)
[2017-08-16 17:57] LABS: HAAIG REFLEX REFLEX FILED
[2017-08-16 18:38] LABS: HEPATITIS B SURFACE ANTIGEN NEGATIVE (NEGATIVE)
[2017-08-16 18:56] LABS: HEPATITIS B CORE ANTIBODY NEGATIVE (NEGATIVE); HEPATITIS C VIRAL ANTIBODY NEGATIVE (NEGATIVE)
[2017-08-16] MEDS: PANTOPRAZOLE IV 80 MG in SOD CHLORIDE 0.9% 100 ML IV (20:37)
[2017-08-16] MEDS: CASPOFUNGIN 50 MG in SOD CHLORIDE 0.9% 250 ML IVPB (20:40)
[2017-08-17] MEDS: PROPOFOL 100 ML IV ×2 (00:30→11:13)
[2017-08-17] MEDS: ACCU-CHEK XX ×24 (00:30→23:18)
[2017-08-17] MEDS: ALBUTEROL/IPRATROPIUM (NEB) 3 ML AMP HHN ×4 (01:27→20:08)
[2017-08-17] MEDS: PANTOPRAZOLE IV 80 MG in SOD CHLORIDE 0.9% 100 ML IV ×2 (04:00→09:59)
[2017-08-17] MEDS: PHENYLephrine 40 MG in DEXTROSE 5% 496 ML IV ×2 (04:00→10:26)
[2017-08-17 05:19] LABS: WHITE BLOOD COUNT 35.1 10^3/ul (4.8-10.8)
[2017-08-17 05:19] LABS: ABNORMAL IP MESSAGE 1; HEMATOCRIT 26.2 % (42.0-52.0); HEMOGLOBIN 8.7 g/dl (14.0-18.0); MEAN CORPUSCULAR HEMOGLOBIN 28.5 pg (29.0-33.0); MEAN CORPUSCULAR HGB CONC 33.2 g/dl (32.0-37.0); MEAN CORPUSCULAR VOLUME 85.9 fl (82.0-101.0); MEAN PLATELET VOLUME 13.2 fl (7.4-10.4); PLATELET COUNT 67 10^3/UL (140-415); POSITIVE DIFF @See below; RED BLOOD COUNT 3.05 10^6/ul (4.70-6.10); RED CELL DISTRIBUTION WIDTH 15.3 % (11.5-14.5)
[2017-08-17 05:23] LABS: ADD MAN DIFF? YES
[2017-08-17] MEDS: TPN 1,000 ML IV ×3 (05:30→17:28)
[2017-08-17 05:34] LABS: PARTIAL THROMBOPLASTIN TIME 50.6 Sec (25.0-35.0)
[2017-08-17 05:43] LABS: ANION GAP 12 (8-16); CALCIUM 7.7 mg/dl (8.4-10.2); CARBON DIOXIDE 20 mmol/L (21-31); CHLORIDE 96 mmol/L (97-110); CREATININE 2.43 mg/dl (0.61-1.24); GLUCOSE 105 mg/dl (70-220); POTASSIUM 3.8 mmol/L (3.5-5.1); SODIUM 124 mmol/L (135-144)
[2017-08-17 06:11] LABS: BLOOD UREA NITROGEN 134 mg/dl (7-20)
[2017-08-17 06:11] LABS: LACTIC ACID 2.4 mmol/L (0.5-2.0)
[2017-08-17 07:11] LABS: BASOPHIL # 0.1 10^3/ul (0.0-0.1); BASOPHILS % 0.2 % (0.0-2.0); LYMPHOCYTES # 1.4 10^3/ul (0.8-2.9); LYMPHOCYTES % 4.1 % (15.0-51.0); MONOCYTE # 1.5 10^3/ul (0.3-0.9); MONOCYTES % 4.3 % (0.0-11.0); NEUTROPHIL # 31.1 10^3/ul (1.6-7.5)
[2017-08-17 08:54] LABS: AADO2 Arterial 296.7 mmHg (7.0-24.0); Arterial Base Excess -7.6 mmol/L (-3.0-3); Arterial Blood Gas Oxygen Sat 95.1 mmHG (95.0-98.0); Arterial COHb 0.2 % (0.0-3.0); Arterial Fraction of Oxyhgb 94.5 % (93.0-99.0); Arterial HCO3 18.5 mmol/L (22.0-26.0); Arterial MetHb 0.4 % (0.0-1.5); Arterial Total Hemglobin 9.5 g/dl (12.0-18.0); Arterial pCO2 39.9 mmhg (35-45); MODE VENT - AC; Site Right Radial
[2017-08-17] MEDS: LEVETIRACETAM 500 MG (PMX) 100 ML IVPB ×2 (09:14→22:42)
[2017-08-17] MEDS: BALSAM PERU/CASTOR OIL 60 GM TUBE TOP ×2 (09:16→22:43)
[2017-08-17] MEDS: MEROPENEM 1 GM/50ML(PMX) 50 ML IVPB ×2 (09:16→22:42)
[2017-08-17] MEDS ORDERED: PHENYLephrine 20MG IN 250 ML 250 ML (09:30)
[2017-08-17 09:38] LABS: ANISOCYTOSIS 1+ (0-0); BAND NEUTROPHILS #M 5.9 10^3/ul (0.0-0.6); BAND NEUTROPHILS % (M) 17 % (0-4); GIANT THROMBO% (M) 1 % (0-0); LYMPHOCYTES #M 0.7 10^3/ul (0.8-2.9); LYMPHOCYTES % (M) 2 % (15-51); MICROCYTOSIS 1+ (0-0); MONOCYTE #M 0.7 10^3/ul (0.3-0.9); MONOCYTES % (M) 2 % (0-11); MYELOCYTES #M 0.3 10^3/ul (0.0-0.0); MYELOCYTES % (M) 1 % (0-0); PLATELET ESTIMATE SIG DECREASED; POIKILOCYTOSIS 3+ (0-0); SEG NEUT #M 29.4 10^3/ul (1.6-7.5); SEGMENTED NEUTROPHILS (M) % 78 % (39-77); SMUDGE%M 49 % (0-0)
[2017-08-17] MEDS: COLISTIMETHATE (25 MG/ML INHAL SYG) NEB ×2 (09:44→20:08)
[2017-08-17] MEDS: NA BICARBONATE 650 MG TAB PO ×3 (10:00→22:42)
[2017-08-17] MEDS ORDERED: VANCOMYCIN IV PER PHARMACY XX (10:30)
[2017-08-17] MEDS: LEVOFLOXACIN 750MG/D5W (PMX) 150 ML IVPB (12:05)
[2017-08-17] MEDS: PHENYLephrine 160 MG in DEXTROSE 5% 484 ML IV (13:18)
[2017-08-17] MEDS: HEPARIN 1000 UNITS/ML 10 ML INJ CATHETER (13:30)
[2017-08-17] MEDS: VANCOMYCIN 1.25 GM in SOD CHLORIDE 0.9% 250 ML IVPB (14:56)
[2017-08-17] MEDS: FAT EMULSION 20% 250 ML IV (16:00)
[2017-08-17] MEDS: INSULIN HUMAN REGULAR 100 UNIT in SOD CHLORIDE 0.9% 99 ML IV (16:16)
[2017-08-17] MEDS: LIDOCAINE 1% (MDV) 10 ML INJ ×2 (16:33)
[2017-08-17 16:41] LABS: FLD MN% 8.8 %; FLD PMN% 91.2 %; FLD RBC 4000 /uL; FLD WBC 34 /cmm
[2017-08-17 20:12] LABS: FLD TYPE ASCITES
[2017-08-17 20:12] LABS: FLD CLARITY SLIGHTLY HAZY; FLD COLOR AMBER
[2017-08-17] MEDS: CASPOFUNGIN 50 MG in SOD CHLORIDE 0.9% 250 ML IVPB (22:42)
[2017-08-18] MEDS: PANTOPRAZOLE IV 80 MG in SOD CHLORIDE 0.9% 100 ML IV ×3 (00:20→20:14)
[2017-08-18] MEDS: ACCU-CHEK XX ×24 (00:20→22:03)
[2017-08-18] MEDS: PHENYLephrine 160 MG in DEXTROSE 5% 484 ML IV (00:25)
[2017-08-18] MEDS: PROPOFOL 100 ML IV ×2 (00:30→12:30)
[2017-08-18] MEDS: ALBUTEROL/IPRATROPIUM (NEB) 3 ML AMP HHN ×3 (01:09→13:00)
[2017-08-18] MEDS: NA BICARBONATE 650 MG TAB PO ×3 (05:58→21:28)
[2017-08-18 06:11] LABS: WHITE BLOOD COUNT 34.8 10^3/ul (4.8-10.8)
[2017-08-18 06:11] LABS: ABNORMAL IP MESSAGE 1; HEMATOCRIT 24.6 % (42.0-52.0); HEMOGLOBIN 8.4 g/dl (14.0-18.0); MEAN CORPUSCULAR HEMOGLOBIN 29.4 pg (29.0-33.0); MEAN CORPUSCULAR HGB CONC 34.1 g/dl (32.0-37.0); NUCLEATED RED BLOOD CELLS% 0.1 /100WBC (0.0-0.0); PLATELET COUNT 44 10^3/UL (140-415); POSITIVE DIFF @See below; RED BLOOD COUNT 2.86 10^6/ul (4.70-6.10); RED CELL DISTRIBUTION WIDTH 15.2 % (11.5-14.5)
[2017-08-18 06:27] LABS: ADD MAN DIFF? YES
[2017-08-18 07:08] LABS: ALANINE AMINOTRANSFERASE 28 IU/L (13-69); ALBUMIN 1.4 g/dl (3.3-4.9); ALBUMIN/GLOBULIN RATIO 0.53; ALKALINE PHOSPHATASE 80 IU/L (42-121); ANION GAP 10 (8-16); ASPARTATE AMINO TRANSFERASE 38 IU/L (15-46); BILIRUBIN,INDIRECT 0.5 mg/dl (0-1.1); BILIRUBIN,TOTAL 0.5 mg/dl (0.2-1.3); BLOOD UREA NITROGEN 96 mg/dl (7-20); CALCIUM 8.2 mg/dl (8.4-10.2); CARBON DIOXIDE 21 mmol/L (21-31); CHLORIDE 98 mmol/L (97-110); CREATININE 2.46 mg/dl (0.61-1.24); GLUCOSE 136 mg/dl (70-220); SODIUM 125 mmol/L (135-144)
[2017-08-18 07:22] LABS: MAGNESIUM 1.7 mg/dl (1.7-2.5)
[2017-08-18 07:22] LABS: PHOSPHORUS 4.3 mg/dl (2.5-4.9)
[2017-08-18] MEDS: BALSAM PERU/CASTOR OIL 60 GM TUBE TOP ×2 (09:00→20:11)
[2017-08-18 09:23] LABS: ANISOCYTOSIS 3+ (0-0); BAND NEUTROPHILS #M 6.9 10^3/ul (0.0-0.6); BAND NEUTROPHILS % (M) 20 % (0-4); BURR CELLS 3+ (0-0); ERYTHROBLAST% (NRBC) (M) 1 % (0-0); GIANT THROMBO% (M) 1 % (0-0); LYMPHOCYTES #M 1.3 10^3/ul (0.8-2.9); LYMPHOCYTES % (M) 4 % (15-51); METAMYELOCYTES #M 0.6 10^3/ul (0.0-0.0); METAMYELOCYTES %M 2 % (0-0); MICROCYTOSIS 3+ (0-0); MONOCYTES % (M) 3 % (0-11); MYELOCYTES % (M) 3 % (0-0); PLATELET ESTIMATE SIG DECREASED; POIKILOCYTOSIS 2+ (0-0); PROMYELOCYTES #M 0.3 10^3/ul (0-0); PROMYELOCYTES % (M) 1 % (0-0); SEG NEUT #M 25.7 10^3/ul (1.6-7.5); SEGMENTED NEUTROPHILS (M) % 67 % (39-77); SMUDGE%M 14 % (0-0); SPHEROCYTES 1+ (0-0)
[2017-08-18] MEDS: COLISTIMETHATE (25 MG/ML INHAL SYG) NEB ×2 (09:41→21:13)
[2017-08-18] MEDS: MEROPENEM 1 GM/50ML(PMX) 50 ML IVPB ×2 (10:04→20:10)
[2017-08-18] MEDS: LEVETIRACETAM 500 MG (PMX) 100 ML IVPB ×2 (10:04→20:10)
[2017-08-18] MEDS: VASOPRESSIN 60 UNIT in DEXTROSE 5% 57 ML IV ×2 (10:20→21:39)
[2017-08-18] MEDS: TPN 1,000 ML IV (11:20)
[2017-08-18] MEDS ORDERED: TPN 1,000 ML IV (12:30)
[2017-08-18] MEDS: LEVOFLOXACIN 500MG/D5W (PMX) 100 ML IVPB (14:00)
[2017-08-18] MEDS: SOD CHLORIDE 0.9% 500 ML IV (15:12)
[2017-08-18] MEDS: SOD CHLORIDE 0.9% 1,000 ML IV (16:10)
[2017-08-18] MEDS: FAT EMULSION 20% 250 ML IV (16:37)
[2017-08-18 18:49] LABS: LIPASE 363 U/L (23-300)
[2017-08-18 18:49] LABS: AMYLASE 290 U/L (11-123)
[2017-08-18 20:08] LABS: AADO2 Arterial 309.4 mmHg (7.0-24.0); Allen Test ACCEPTAB; Arterial Base Excess -9.1 mmol/L (-3.0-3); Arterial Blood Gas Oxygen Sat 93.6 mmHG (95.0-98.0); Arterial COHb 0.7 % (0.0-3.0); Arterial Fraction of Oxyhgb 92.2 % (93.0-99.0); Arterial HCO3 16.8 mmol/L (22.0-26.0); Arterial MetHb 0.8 % (0.0-1.5); Arterial Total Hemglobin 7.5 g/dl (12.0-18.0); Arterial pCO2 36.2 mmhg (35-45); MODE VENT - AC; Site Right Radial
[2017-08-18] MEDS: ACETAMINOPHEN 650 MG SUPP PR (20:10)
[2017-08-18] MEDS: CASPOFUNGIN 50 MG in SOD CHLORIDE 0.9% 250 ML IVPB (20:11)
[2017-08-18] MEDS: INSULIN HUMAN REGULAR 100 UNIT in SOD CHLORIDE 0.9% 99 ML IV (20:25)
[2017-08-19] MEDS: ACCU-CHEK XX ×14 (00:01→13:00)
[2017-08-19] MEDS: PROPOFOL 100 ML IV ×2 (00:01→12:30)
[2017-08-19] MEDS: TPN 1,000 ML IV (04:31)
[2017-08-19] MEDS: NA BICARBONATE 650 MG TAB PO ×3 (05:36→14:39)
[2017-08-19] MEDS: PANTOPRAZOLE IV 80 MG in SOD CHLORIDE 0.9% 100 ML IV (05:53)
[2017-08-19 06:25] LABS: ABNORMAL IP MESSAGE 1; HEMATOCRIT 19.5 % (42.0-52.0); MEAN CORPUSCULAR HGB CONC 32.8 g/dl (32.0-37.0); MEAN CORPUSCULAR VOLUME 88.2 fl (82.0-101.0); NUCLEATED RED BLOOD CELLS% 0.8 /100WBC (0.0-0.0); PLATELET COUNT 37 10^3/UL (140-415); POSITIVE DIFF @See below; RED BLOOD COUNT 2.21 10^6/ul (4.70-6.10); RED CELL DISTRIBUTION WIDTH 15.5 % (11.5-14.5)
[2017-08-19 06:25] LABS: WHITE BLOOD COUNT 37.5 10^3/ul (4.8-10.8)
[2017-08-19 06:26] LABS: ADD MAN DIFF? YES
[2017-08-19 06:28] LABS: HEMOGLOBIN 6.4 g/dl (14.0-18.0)
[2017-08-19 07:16] LABS: ANION GAP 10 (8-16); BLOOD UREA NITROGEN 108 mg/dl (7-20); CALCIUM 8.7 mg/dl (8.4-10.2); CARBON DIOXIDE 20 mmol/L (21-31); CHLORIDE 96 mmol/L (97-110); GLUCOSE 122 mg/dl (70-220); POTASSIUM 4.2 mmol/L (3.5-5.1); SODIUM 122 mmol/L (135-144)
[2017-08-19 07:21] LABS: VANCOMYCIN,RANDOM 10.2 ug/ml
[2017-08-19 07:25] LABS: CREATININE 3.16 mg/dl (0.61-1.24)
[2017-08-19] MEDS: PHENYLephrine 160 MG in DEXTROSE 5% 484 ML IV ×2 (09:00→10:09)
[2017-08-19] MEDS: VASOPRESSIN 60 UNIT in DEXTROSE 5% 57 ML IV (09:07)
[2017-08-19 09:23] LABS: ANISOCYTOSIS 1+ (0-0); BAND NEUTROPHILS #M 10.1 10^3/ul (0.0-0.6); BAND NEUTROPHILS % (M) 27 % (0-4); EOSINOPHILS % (M) 1 % (0-7); HYPOCHROMASIA 2+ (0-0); LYMPHOCYTES #M 2.2 10^3/ul (0.8-2.9); LYMPHOCYTES % (M) 6 % (15-51); METAMYELOCYTES #M 0.7 10^3/ul (0.0-0.0); METAMYELOCYTES %M 2 % (0-0); MICROCYTOSIS 1+ (0-0); MONOCYTE #M 1.8 10^3/ul (0.3-0.9); MONOCYTES % (M) 5 % (0-11); MYELOCYTES #M 0.7 10^3/ul (0.0-0.0); MYELOCYTES % (M) 2 % (0-0); PLATELET ESTIMATE DECREASED; POIKILOCYTOSIS 1+ (0-0); POLYCHROMASIA 1+ (0-0); PROMYELOCYTES #M 0.7 10^3/ul (0-0); PROMYELOCYTES % (M) 2 % (0-0); SEG NEUT #M 24.4 10^3/ul (1.6-7.5); SEGMENTED NEUTROPHILS (M) % 55 % (39-77); SMUDGE%M 13 % (0-0)
[2017-08-19 09:53] LABS: IMMEDIATE SPIN CROSSMATCH 1 1
[2017-08-19] MEDS: MEROPENEM 1 GM/50ML(PMX) 50 ML IVPB (10:32)
[2017-08-19] MEDS: HEPARIN 1000 UNITS/ML 10 ML INJ CATHETER (10:45)
[2017-08-19] MEDS: SOD CHLORIDE 0.9% 500 ML IV (11:50)
[2017-08-19] MEDS: BALSAM PERU/CASTOR OIL 60 GM TUBE TOP (11:58)
[2017-08-19] MEDS: LEVETIRACETAM 500 MG (PMX) 100 ML IVPB (12:56)
[2017-08-19] MEDS: DEXTROSE 50% 50 ML SYRINGE IV (12:57)
[2017-08-19] MEDS: COLISTIMETHATE (25 MG/ML INHAL SYG) NEB (13:40)
[2017-08-19] MEDS: NA BICARBONATE 8.4% 50 ML SYG IV (14:32)
[2017-08-19] MEDS: VANCOMYCIN 1 GM 250 ML IVPB (14:39)
== END 2017-08-19 16:24 | disposition expired | DRG 870 ==
LOC: ICU 08-14 02:41 → E/R 22:26 → TEL 07-29 01:36
PROC: 0FC98ZZ Extirpation of Matter from Common Bile Duct, Via Natural or Artificial Opening Endoscopic (ICD-10-PCS; 2017-08-02 17:00)
PROC: 0F798DZ Dilation of Common Bile Duct with Intraluminal Device, Via Natural or Artificial Opening Endoscopic (ICD-10-PCS; 2017-08-02 17:00)
PROC: 02HV33Z Insertion of Infusion Device into Superior Vena Cava, Percutaneous Approach (ICD-10-PCS; principal; 2017-08-02 17:56)
PROC: 5A1955Z Respiratory Ventilation, Greater than 96 Consecutive Hours (ICD-10-PCS; 2017-08-02 17:56)
PROC: 0T9B70Z Drainage of Bladder with Drainage Device, Via Natural or Artificial Opening (ICD-10-PCS; 2017-08-02 17:56)
PROC: 0W9G3ZX Drainage of Peritoneal Cavity, Percutaneous Approach, Diagnostic (ICD-10-PCS; 2017-08-02 17:56)
PROC: 0W9G3ZX Drainage of Peritoneal Cavity, Percutaneous Approach, Diagnostic (ICD-10-PCS; 2017-08-02 17:56)
PROC: 5A1D70Z Performance of Urinary Filtration, Intermittent, Less than 6 Hours Per Day (ICD-10-PCS; 2017-08-02 17:56)
PROC: 06HY33Z Insertion of Infusion Device into Lower Vein, Percutaneous Approach (ICD-10-PCS; 2017-08-02 17:56)
PROC: 30233N1 Transfusion of Nonautologous Red Blood Cells into Peripheral Vein, Percutaneous Approach (ICD-10-PCS; 2017-08-02 17:56)
DX: A41.9 Sepsis, unspecified organism (principal); K85.90 Acute pancreatitis without necrosis or infection, unspecified; R65.21 Severe sepsis with septic shock; N17.0 Acute kidney failure with tubular necrosis; J69.0 Pneumonitis due to inhalation of food and vomit; G93.49 Other encephalopathy; E43 Unspecified severe protein-calorie malnutrition; K65.9 Peritonitis, unspecified; B37.49 Other urogenital candidiasis; R18.8 Other ascites; E87.0 Hyperosmolality and hypernatremia; I47.2 Ventricular tachycardia; N17.9 Acute kidney failure, unspecified; J80 Acute respiratory distress syndrome; E87.1 Hypo-osmolality and hyponatremia; J96.11 Chronic respiratory failure with hypoxia; K80.50 Calculus of bile duct without cholangitis or cholecystitis without obstruction; N20.0 Calculus of kidney; Z66 Do not resuscitate; R21 Rash and other nonspecific skin eruption; E78.5 Hyperlipidemia, unspecified; G40.909 Epilepsy, unspecified, not intractable, without status epilepticus; E11.649 Type 2 diabetes mellitus with hypoglycemia without coma; N35.9 Urethral stricture, unspecified; N21.0 Calculus in bladder; M85.80 Other specified disorders of bone density and structure, unspecified site; N50.89 Other specified disorders of the male genital organs; I48.2 Chronic atrial fibrillation; E11.65 Type 2 diabetes mellitus with hyperglycemia; Z93.0 Tracheostomy status; Z93.1 Gastrostomy status; Z86.73 Personal history of transient ischemic attack (TIA), and cerebral infarction without residual deficits; Z68.21 Body mass index [BMI] 21.0-21.9, adult; D64.9 Anemia, unspecified; D69.6 Thrombocytopenia, unspecified
CPT/HCPCS: 36430; 36569; 36600; 71045; 74018; 74176; 74181; 74330; 76775; 76937; 80048; 80053; 80061; 80202; 81001; 81003; 82040; 82042; 82150; 82270; 82550; 82565; 82570; 82803; 82945; 82962; 83036; 83605; 83615; 83690; 83735; 84100; 84132; 84134; 84145; 84146; 84155; 84157; 84165; 84300; 84478; 84484; 84520; 84560; 85025; 85610; 85730; 86320; 86704; 86709; 86803; 86850; 86900; 86901; 86920; 87040; 87070; 87081; 87086; 87102; 87116; 87340; 87400; 88104; 88305; 88313; 89051; 89190; 89220; 90935; 93005; 93306; 93970; 94002; 94003; 94640; 94664; 96365; 96366; 96368; 96372; 96375; 96376; 99291-25